=== PATIENT | female | born 1985 | race Caucasian/White ===

== ENCOUNTER → 2016-08-26 | Outpatient (CLI) | payer OTHER ==
[~2016-08-26] MED LIST: /PANT40TA PO; /QUET10TA PO; ACET-654 PO; HYDR25T PO; LITH450T PO; RISP1TAB21 PO; UNABLE TO OBTAIN; [UNRECOGNIZED DRUG - CODE] PO
--- NOTE | 2016-08-26 12:30 | REP ---
Chest x-ray: Two views. History: Upper respiratory infection. . Comparison study: June 24, 2016 . Findings: The lungs are well inflated and free of infiltrate. The pleural angles are sharp. The heart size is normal. Pulmonary vasculature is not increased. No significant bony abnormality is seen. There are clips in the right upper quadrant of the abdomen. Impression: Negative chest x-ray. Signed by Derrell Matamoros MD 08/26/2016 12:22 P
== END ==
LOC: M LAB 11:52
PROVIDERS: ATTEND Physician Assistant Medical
DX: J06.9 Acute upper respiratory infection, unspecified (principal)

== ENCOUNTER → 2016-09-04 | Outpatient (CLI) | payer OTHER ==
--- NOTE | 2016-09-05 02:55 | REP ---
Clinical: Acute on chronic back pain . Technique: AP, lateral, bilateral oblique, flexion/extension, and coned-down views. Findings: Alignment and lordosis is maintained. The vertebral bodies including transverse process and spinous processes are intact and normal. There is no evidence for acute fracture / compression injury or subluxation. No evidence for spondylolysis or spondylolisthesis. No significant degenerative change is noted. Impression: Normal lumbosacral spine radiograph series. Signed by Kaden Aguilar MD 09/05/2016 02:47 A
== END ==
LOC: M RAD 15:59
PROVIDERS: ATTEND Physician Assistant Medical
DX: M54.5 Low back pain (principal)

== ENCOUNTER → 2016-09-12 | Outpatient (CLI) | payer OTHER ==
--- NOTE | 2016-09-13 00:47 | REP ---
Clinical: thoracic pain. Technique: AP, lateral, and swimmers views. Findings: Alignment and kyphosis is maintained. Vertebral bodies intact. No acute fracture / compression injury or subluxation. No degenerative changes. Paravertebral soft tissues are normal. Impression: Normal thoracic spine series. Signed by Kaden Aguilar MD 09/13/2016 12:39 A
== END ==
LOC: M RAD 16:38
PROVIDERS: ATTEND Physician Assistant Medical
DX: M54.6 Pain in thoracic spine (principal)

== ENCOUNTER → 2016-10-02 | Outpatient (CLI) | payer OTHER ==
[2016-10-02 11:37] LABS: BASO # 0.1 K/mm3 (0.0-0.2); BASO % 0.9 % (0.0-1.0); EOS # 0.3 K/mm3 (0.0-0.50); EOS % 3.6 % (0.0-3.0); LYMPH # 2.6 K/mm3 (1.5-4.5); MEAN CORPUSCULAR HEMOGLOBIN 31.9 pg (27.0-33.0); MEAN CORPUSCULAR HGB CONC 34.3 g/dl (32.0-36.5); MONO # 0.5 K/mm3 (0.0-0.8); NEUTROPHILS # 4.1 K/mm3 (1.8-7.7); NEUTROPHILS % 54.3 % (36.0-66.0); WHITE BLOOD COUNT 7.5 K/mm3 (4.0-10.0)
--- NOTE | 2016-10-02 12:02 | REP ---
Complete abdominal ultrasound: There is a cholecystectomy. The hepatic parenchyma is homogeneous and unremarkable. There is no intrahepatic or extrahepatic biliary duct dilatation, the common duct measures 5.4 mm diameter. The visualized portion of the pancreatic head is unremarkable. The spleen is normal size and homogeneous measuring 9.9 x 4.9 x 8.9 cm. The kidneys are normal size. The right kidney measures 10.9 x 5.7 x 4.3 cm. Left kidney measures 11.8 of 5.1 x 5.0 cm. There is no hydronephrosis or calculus in either kidney. There is a small echogenic focus laterally in the upper pole left kidney measuring approximate 1 cm diameter, possibly an angiomyolipoma. Confirmation by CT or MRI is recommended. There is no abdominal aortic aneurysm. There is no free intraperitoneal fluid. Impression: Cholecystectomy. 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 Confirmation by CT or MRI is recommended. Otherwise, negative complete abdominal ultrasound. Signed by Cem Clay MD 10/02/2016 11:54 A
[2016-10-02 12:51] LABS: ALBUMIN 3.8 GM/DL (3.2-5.2); ALBUMIN/GLOBULIN RATIO 1.31 (1.00-1.93); ALKALINE PHOSPHATASE 67 U/L (45-117); ALT/SGPT 18 U/L (12-78); ANION GAP 7 MEQ/L (8-16); AST/SGOT 13 U/L (15-37); BILIRUBIN,TOTAL 0.6 MG/DL (0.2-1.0); BLOOD UREA NITROGEN 9 MG/DL (7-18); CALCIUM LEVEL 8.8 MG/DL (8.5-10.1); CARBON DIOXIDE LEVEL 27 MEQ/L (21-32); CHLORIDE LEVEL 109 MEQ/L (98-107); CREATININE FOR GFR 0.62 MG/DL (0.55-1.02); GLOMERULAR FILTRATION RATE > 60.0 (>60); GLUCOSE, FASTING 94 MG/DL (70-105); POTASSIUM SERUM 4.2 MEQ/L (3.5-5.1); SODIUM LEVEL 143 MEQ/L (136-145); TOTAL PROTEIN 6.7 GM/DL (6.4-8.2)
== END ==
LOC: M RAD 10:12
PROVIDERS: ATTEND Physician Assistant Medical
DX: K58.2 Mixed irritable bowel syndrome (principal)

== ENCOUNTER → 2016-10-30 | Outpatient (CLI) | payer OTHER ==
--- NOTE | 2016-10-30 13:17 | REP ---
Right foot four views: There is no fracture or dislocation. Mineralization and joint spaces are normal. There are no calcifications or foreign bodies. Impression: Negative right foot . Signed by Cem Clay MD 10/30/2016 01:09 P
== END ==
LOC: M RAD 11:25
PROVIDERS: ATTEND Physician Assistant Medical
DX: M79.671 Pain in right foot (principal)

== ENCOUNTER → 2016-12-17 | Outpatient (CLI) | payer OTHER ==
[2016-12-17 09:07] LABS: BASO # 0.1 K/mm3 (0.0-0.2); BASO % 0.6 % (0.0-1.0); EOS # 0.4 K/mm3 (0.0-0.50); EOS % 5.2 % (0.0-3.0); LYMPH # 2.7 K/mm3 (1.5-4.5); LYMPH % 30.9 % (24.0-44.0); MEAN CORPUSCULAR HEMOGLOBIN 32.9 pg (27.0-33.0); MEAN CORPUSCULAR HGB CONC 33.6 g/dl (32.0-36.5); MEAN CORPUSCULAR VOLUME 97.7 fl (80.0-96.0); MONO # 0.5 K/mm3 (0.0-0.8); MONO % 6.3 % (0.0-5.0); NEUTROPHILS # 4.7 K/mm3 (1.8-7.7); RED CELL DISTRIBUTION WIDTH 12.6 % (11.5-14.5); WHITE BLOOD COUNT 8.6 K/mm3 (4.0-10.0)
[2016-12-17 09:16] LABS: CONTROL LINE MONO INT CTR LINE PRESENT
[2016-12-17 09:32] LABS: ALBUMIN 3.8 GM/DL (3.2-5.2); ALBUMIN/GLOBULIN RATIO 1.15 (1.00-1.93); ALKALINE PHOSPHATASE 62 U/L (45-117); ALT/SGPT 37 U/L (12-78); ANION GAP 6 MEQ/L (8-16); AST/SGOT 16 U/L (15-37); BILIRUBIN,TOTAL 0.6 MG/DL (0.2-1.0); BLOOD UREA NITROGEN 10 MG/DL (7-18); CALCIUM LEVEL 8.3 MG/DL (8.5-10.1); CARBON DIOXIDE LEVEL 27 MEQ/L (21-32); CHLORIDE LEVEL 106 MEQ/L (98-107); CREATININE FOR GFR 0.65 MG/DL (0.55-1.02); FERRITIN 13 NG/ML (8-252); GLOMERULAR FILTRATION RATE > 60.0 (>60); GLUCOSE, FASTING 91 MG/DL (70-105); MAGNESIUM LEVEL 1.8 MG/DL (1.8-2.4); PHOSPHORUS LEVEL 2.9 MG/DL (2.5-4.9); POTASSIUM SERUM 4.3 MEQ/L (3.5-5.1); SODIUM LEVEL 139 MEQ/L (136-145); TOTAL PROTEIN 7.1 GM/DL (6.4-8.2)
[2016-12-17 10:15] LABS: FOLATE > 24.0 NG/ML (>5.4); VITAMIN B12 LEVEL 451 PG/ML (247-911)
[2016-12-19 00:06] LABS: Lyme Disease IgG/IgM Antibodie <0.91 ISR (0.00-0.90); Lyme Disease IgM Ab Quantitati <0.80 index (0.00-0.79)
== END ==
LOC: M LAB 08:18
PROVIDERS: ATTEND Physician Assistant Medical
DX: R53.83 Other fatigue (principal)

== ENCOUNTER → 2017-01-02 | Outpatient (CLI) | payer OTHER ==
[2017-01-02 10:13] LABS: BASO # 0.1 K/mm3 (0.0-0.2); BASO % 0.7 % (0.0-1.0); EOS # 0.4 K/mm3 (0.0-0.50); EOS % 4.1 % (0.0-3.0); LYMPH # 2.7 K/mm3 (1.5-4.5); LYMPH % 28.8 % (24.0-44.0); MEAN CORPUSCULAR HEMOGLOBIN 33.4 pg (27.0-33.0); MEAN CORPUSCULAR HGB CONC 35.1 g/dl (32.0-36.5); MEAN CORPUSCULAR VOLUME 95.2 fl (80.0-96.0); MONO # 0.6 K/mm3 (0.0-0.8); NEUTROPHILS # 5.2 K/mm3 (1.8-7.7); NEUTROPHILS % 57.8 % (36.0-66.0); RED CELL DISTRIBUTION WIDTH 12.4 % (11.5-14.5)
[2017-01-02 10:42] LABS: ALBUMIN 3.9 GM/DL (3.2-5.2); ALBUMIN/GLOBULIN RATIO 1.26 (1.00-1.93); ALKALINE PHOSPHATASE 59 U/L (45-117); ALT/SGPT 25 U/L (12-78); ANION GAP 6 MEQ/L (8-16); AST/SGOT 15 U/L (15-37); BILIRUBIN,TOTAL 0.6 MG/DL (0.2-1.0); BLOOD UREA NITROGEN 11 MG/DL (7-18); CALCIUM LEVEL 8.7 MG/DL (8.5-10.1); CARBON DIOXIDE LEVEL 28 MEQ/L (21-32); CHLORIDE LEVEL 105 MEQ/L (98-107); CHOLESTEROL LEVEL 203 MG/DL (<200); CREATININE FOR GFR 0.65 MG/DL (0.55-1.02); GLOMERULAR FILTRATION RATE > 60.0 (>60); GLUCOSE, FASTING 96 MG/DL (70-105); POTASSIUM SERUM 4.6 MEQ/L (3.5-5.1); SODIUM LEVEL 139 MEQ/L (136-145); TRIGLYCERIDES LEVEL 132 MG/DL (<150)
[2017-01-02 11:03] LABS: VITAMIN B12 LEVEL 350 PG/ML
[2017-01-02 11:35] LABS: FOLATE > 24.0 NG/ML
== END ==
LOC: M LAB 09:27
PROVIDERS: ATTEND Physician Assistant Medical
DX: E78.2 Mixed hyperlipidemia (principal)

== ENCOUNTER 2017-01-30 07:46 | Emergency (ER) | payer OTHER ==
[~2017-01-30] VITALS: Ht 152.4 cm; Wt 65.9 kg
[2017-01-30] MEDS ORDERED: VITA50003 (08:05)
[2017-01-30] MEDS ORDERED: KETOROLAC 60 MG/2 ML VIAL (J1885) IM ONE (08:30)
[2017-01-30] MEDS ORDERED: SKEL-29 PO (09:29)
[2017-01-30] MEDS ORDERED: NAPR500T PO (09:29)
[2017-01-30 09:48] VITALS: BP 114/58
[2017-01-30] MEDS ORDERED: CYCLOBENZAPRINE 5MG TABLET PO ONE (10:15)
[2017-01-30] MEDS ORDERED: [UNRECOGNIZED DRUG - CODE] PO (11:08)
[2017-01-30] MEDS ORDERED: ASCO25TA PO (11:08)
[2017-01-30] MEDS ORDERED: VITATAB11 PO (11:08)
[2017-01-30] MEDS ORDERED: PROBCAP4 PO (11:08)
[2017-01-30] MEDS ORDERED: CYCL10TA PO (12:19)
[2017-01-30] MEDS ORDERED: PRED20TA PO (12:19)
== END 2017-01-30 10:18 | disposition home or self-care (01) ==
LOC: M ED 08:35
DX: G89.29 Other chronic pain (principal); Z90.49 Acquired absence of other specified parts of digestive tract; Z79.899 Other long term (current) drug therapy; Z88.1 Allergy status to other antibiotic agents; Z88.8 Allergy status to other drugs, medicaments and biological substances; Z91.010 Allergy to peanuts; Z91.018 Allergy to other foods; Z91.040 Latex allergy status

== ENCOUNTER 2017-01-30 10:46 | Emergency (ER) | payer OTHER ==
[~2017-01-30] VITALS: Ht 152.4 cm; Wt 65.7 kg
[~2017-01-30 10:46] MED LIST changes: +NAPR500T PO; +SKEL-29 PO; +VITA50003
[2017-01-30] MEDS ORDERED: PROBCAP4 PO (11:08)
[2017-01-30] MEDS ORDERED: ASCO25TA PO (11:08)
[2017-01-30] MEDS ORDERED: VITATAB11 PO (11:08)
[2017-01-30] MEDS ORDERED: [UNRECOGNIZED DRUG - CODE] PO (11:08)
[2017-01-30] MEDS ORDERED: CYCL10TA PO (12:19)
[2017-01-30] MEDS ORDERED: PRED20TA PO (12:19)
[2017-01-30 12:22] VITALS: BP 114/67
[2017-01-30] MEDS ORDERED: CYCLOBENZAPRINE 10 MG TAB PO ONE (12:30)
== END 2017-01-30 12:27 | disposition home or self-care (01) ==
LOC: M ED 11:31
DX: S39.012A Strain of muscle, fascia and tendon of lower back, initial encounter (principal); X50.0XXA Overexertion from strenuous movement or load, initial encounter; Y92.89 Other specified places as the place of occurrence of the external cause; Y93.E2 Activity, laundry; Y99.8 Other external cause status; F31.9 Bipolar disorder, unspecified; F17.200 Nicotine dependence, unspecified, uncomplicated; Z79.899 Other long term (current) drug therapy; Z79.1 Long term (current) use of non-steroidal anti-inflammatories (NSAID); Z91.018 Allergy to other foods; Z88.0 Allergy status to penicillin; Z88.8 Allergy status to other drugs, medicaments and biological substances; Z91.040 Latex allergy status; Z91.010 Allergy to peanuts

== ENCOUNTER → 2017-04-01 | Outpatient (CLI) | payer OTHER ==
[~2017-04-01] MED LIST changes: +ASCO25TA PO; +BENA25TA10 PO; +BREO1INH INH; +CYCL10TA PO; +CYCL5TAB PO; +MELO15TA4 PO; +MENSTAB PO; +MICR1TAB16 PO; +NICO21DI31 TD; +OLIV500C PO; +PRED20TA PO; +PROBCAP4 PO; +SERT-155 PO; +SIME80TA PO; -SKEL-29 PO; +SKEL800T97 PO; +TIZA4CAP3 PO; +VITA1CAP40; +VITA1CAP40 PO; -VITA50003; +VITATAB11 PO; +VITATAB22 PO; +[UNRECOGNIZED DRUG - CODE] PO; +[UNRECOGNIZED DRUG - CODE] PO
[2017-04-01 18:54] LABS: FOLLICLE STIMULATING HORMONE 7.4 mIU/mL; PROGESTERONE 0.5 NG/ML; PROLACTIN 9.9 NG/ML
== END ==
LOC: M SMT 14:34
PROVIDERS: ATTEND Specialist
DX: N93.8 Other specified abnormal uterine and vaginal bleeding (principal)

== ENCOUNTER 2017-04-22 16:51 | Emergency (ER) | payer OTHER ==
[~2017-04-22] VITALS: Ht 152.4 cm; Wt 65.0 kg
[~2017-04-22 16:51] MED LIST changes: -BENA25TA10 PO; -BREO1INH INH; -CYCL5TAB PO; -MELO15TA4 PO; -MENSTAB PO; -MICR1TAB16 PO; -NICO21DI31 TD; -OLIV500C PO; -SERT-155 PO; -SIME80TA PO; -TIZA4CAP3 PO; -VITA1CAP40 PO; -VITATAB22 PO; -[UNRECOGNIZED DRUG - CODE] PO
[2017-04-22 19:19] LABS: BASO # 0.1 K/mm3 (0.0-0.2); BASO % 0.5 % (0.0-1.0); EOS # 0.3 K/mm3 (0.0-0.50); EOS % 2.3 % (0.0-3.0); LARGE UNSTAINED CELL # 0.2 K/mm3 (0.0-0.4); LARGE UNSTAINED CELL % 1.1 % (0.0-4.0); LYMPH # 1.9 K/mm3 (1.5-4.5); MEAN CORPUSCULAR HEMOGLOBIN 34.6 pg (27.0-33.0); MEAN CORPUSCULAR VOLUME 94.2 fl (80.0-96.0); MONO # 0.6 K/mm3 (0.0-0.8); MONO % 4.7 % (0.0-5.0); NEUTROPHILS # 10.3 K/mm3 (1.8-7.7); NEUTROPHILS % 77.3 % (36.0-66.0); PLATELET COUNT, AUTOMATED 208 k/mm3 (150-450); RED CELL DISTRIBUTION WIDTH 11.5 % (11.5-14.5); WHITE BLOOD COUNT 13.3 K/mm3 (4.0-10.0)
[2017-04-22 19:26] LABS: INR 0.91
[2017-04-22 19:28] LABS: ADD MORPHOLOGY? NO; MEAN CORPUSCULAR HGB CONC 35.9 g/dl (32.0-36.5)
[2017-04-22 19:46] LABS: ALBUMIN 3.9 GM/DL (3.2-5.2); ALBUMIN/GLOBULIN RATIO 1.22 (1.00-1.93); ALKALINE PHOSPHATASE 64 U/L (45-117); ALT/SGPT 52 U/L (12-78); ANION GAP 8 MEQ/L (8-16); AST/SGOT 76 U/L (15-37); BILIRUBIN,DIRECT 0.2 MG/DL (0.0-0.2); BILIRUBIN,TOTAL 0.5 MG/DL (0.2-1.0); BLOOD UREA NITROGEN 8 MG/DL (7-18); CALCIUM LEVEL 8.9 MG/DL (8.5-10.1); CARBON DIOXIDE LEVEL 27 MEQ/L (21-32); CHLORIDE LEVEL 106 MEQ/L (98-107); CREATININE FOR GFR 0.59 MG/DL (0.55-1.02); GLOMERULAR FILTRATION RATE > 60.0 (>60); GLUCOSE, FASTING 102 MG/DL (70-105); POTASSIUM SERUM 4.4 MEQ/L (3.5-5.1); SODIUM LEVEL 141 MEQ/L (136-145); TOTAL PROTEIN 7.1 GM/DL (6.4-8.2)
[2017-04-22 20:19] LABS: CONTROL LINE HCG INT CTR LINE PRESENT
[2017-04-22 20:45] VITALS: BP 122/77
--- NOTE | 2017-04-23 08:07 | REP ---
Clinical: Chest pain . Comparison: 08/26/2016 . Technique: PA and lateral. Findings: The mediastinum and cardiac silhouette are normal. The lung quach are clear and without acute consolidation, effusion, or pneumothorax. The skeletal structures are intact and normal. Impression: 1. No acute cardiopulmonary process. Signed by Kaden Aguilar MD 04/23/2017 07:58 A
--- NOTE | 2017-04-23 21:34 | ECGEPIP ---
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
--- NOTE | 2017-04-23 21:36 | ECGEPIP ---
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
[2017-06-22] MEDS ORDERED: VITA1CAP40 PO (19:46)
[2017-06-26] MEDS ORDERED: OLAN10TA2 PO (14:53)
[2017-06-26] MEDS ORDERED: OXCA300T PO (14:53)
== END 2017-04-22 23:24 | disposition home or self-care (01) ==
LOC: M ED 16:51 → EDBD 16:51 → M ED 23:24
DX: R55 Syncope and collapse (principal); F31.9 Bipolar disorder, unspecified; M54.9 Dorsalgia, unspecified; F17.200 Nicotine dependence, unspecified, uncomplicated; Z91.010 Allergy to peanuts; Z91.018 Allergy to other foods; Z88.0 Allergy status to penicillin; Z88.8 Allergy status to other drugs, medicaments and biological substances; Z91.040 Latex allergy status; Z91.038 Other insect allergy status; Z79.899 Other long term (current) drug therapy

== ENCOUNTER → 2017-05-13 | Outpatient (CLI) | payer OTHER ==
[~2017-05-13] MED LIST changes: +BENA25TA10 PO; +BREO1INH INH; +CYCL5TAB PO; +DRIS50002 PO; +MELO15TA4 PO; +MENSTAB PO; +MICR1TAB16 PO; +NICO21DI31 TD; +OLAN10TA2 PO; +OLIV500C PO; +OXCA300T PO; +SERT-155 PO; +SIME80TA PO; +TIZA4CAP3 PO; +VITA1CAP40 PO; +VITATAB22 PO; +[UNRECOGNIZED DRUG - CODE] PO
[2017-05-13 12:38] LABS: CONTROL LINE HCG INT CTR LINE PRESENT
[2017-05-13 13:01] LABS: HCG, SERUM QUANTITATIVE < 1.0 MIU/ML
== END ==
LOC: M LAB 11:32
PROVIDERS: ATTEND Physician Assistant Medical
DX: R11.0 Nausea (principal)

== ENCOUNTER 2017-06-02 10:29 | Emergency (ER) | payer OTHER ==
[~2017-06-02] VITALS: Ht 152.4 cm; Wt 63.6 kg
[~2017-06-02 10:29] MED LIST changes: -BENA25TA10 PO; -BREO1INH INH; -CYCL5TAB PO; -DRIS50002 PO; -MELO15TA4 PO; -MENSTAB PO; -MICR1TAB16 PO; -NICO21DI31 TD; -OLAN10TA2 PO; -OLIV500C PO; -OXCA300T PO; -SERT-155 PO; -SIME80TA PO; -TIZA4CAP3 PO; -VITA1CAP40 PO; -VITATAB22 PO; -[UNRECOGNIZED DRUG - CODE] PO
[2017-06-02] MEDS ORDERED: MICR1TAB16 PO (10:49)
[2017-06-02] MEDS ORDERED: BREO1INH INH (10:49)
[2017-06-02] MEDS ORDERED: OLIV500C PO (10:49)
[2017-06-02 11:58] LABS: MEAN CORPUSCULAR HEMOGLOBIN 32.7 pg (27.0-33.0); MEAN CORPUSCULAR HGB CONC 35.9 g/dl (32.0-36.5); RED CELL DISTRIBUTION WIDTH 11.4 % (11.5-14.5); WHITE BLOOD COUNT 8.6 10^3/uL (4.0-10.0)
[2017-06-02 12:16] LABS: CONTROL LINE HCG INT CTR LINE PRESENT
[2017-06-02 12:32] LABS: METHADONE URINE NEGATIVE (NEGATIVE)
[2017-06-02 12:36] LABS: ALBUMIN 3.9 GM/DL (3.2-5.2); ALBUMIN/GLOBULIN RATIO 1.08 (1.00-1.93); ALKALINE PHOSPHATASE 55 U/L (45-117); ALT/SGPT 21 U/L (12-78); ANION GAP 9 MEQ/L (8-16); AST/SGOT 13 U/L (15-37); BILIRUBIN,DIRECT 0.2 MG/DL (0.0-0.2); BILIRUBIN,TOTAL 0.7 MG/DL (0.2-1.0); BLOOD UREA NITROGEN 9 MG/DL (7-18); CALCIUM LEVEL 8.9 MG/DL (8.5-10.1); CARBON DIOXIDE LEVEL 24 MEQ/L (21-32); CHLORIDE LEVEL 109 MEQ/L (98-107); CREATININE FOR GFR 0.69 MG/DL (0.55-1.02); GLOMERULAR FILTRATION RATE > 60.0 (>60); GLUCOSE, FASTING 90 MG/DL (70-105); POTASSIUM SERUM 3.9 MEQ/L (3.5-5.1); SODIUM LEVEL 142 MEQ/L (136-145); TOTAL PROTEIN 7.5 GM/DL (6.4-8.2)
[2017-06-02] MEDS ORDERED: [UNRECOGNIZED DRUG - CODE] PO (12:49)
[2017-06-02] MEDS ORDERED: VITATAB22 PO (12:49)
[2017-06-02] MEDS ORDERED: MELO15TA4 PO (12:54)
[2017-06-02] MEDS ORDERED: SIME80TA PO (12:54)
[2017-06-02] MEDS ORDERED: CYCL10TA PO (12:54)
[2017-06-02] MEDS ORDERED: SERT-155 PO (12:54)
[2017-06-02] MEDS ORDERED: MENSTAB PO (12:54)
[2017-06-02] MEDS ORDERED: TIZA4CAP3 PO (12:54)
[2017-06-02] MEDS ORDERED: CYCL5TAB PO (12:54)
[2017-06-02] MEDS ORDERED: BENA25TA10 PO (12:54)
[2017-06-02] MEDS ORDERED: NICO21DI31 TD (12:56)
[2017-06-02 15:21] VITALS: BP 125/85
[2017-06-22] MEDS ORDERED: VITA1CAP40 PO (19:46)
[2017-06-26] MEDS ORDERED: OXCA300T PO (14:53)
[2017-06-26] MEDS ORDERED: OLAN10TA2 PO (14:53)
== END 2017-06-02 15:22 | disposition home or self-care (01) ==
LOC: M ED 10:29
DX: F41.0 Panic disorder [episodic paroxysmal anxiety] (principal); F60.3 Borderline personality disorder; Z87.891 Personal history of nicotine dependence

== ENCOUNTER → 2017-06-03 | Outpatient (CLI) | payer OTHER ==
[~2017-06-03] MED LIST changes: +BENA25TA10 PO; +BREO1INH INH; +CYCL5TAB PO; +DRIS50002 PO; +MELO15TA4 PO; +MENSTAB PO; +MICR1TAB16 PO; +NICO21DI31 TD; +OLAN10TA2 PO; +OLIV500C PO; +OXCA300T PO; +SERT-155 PO; +SIME80TA PO; +TIZA4CAP3 PO; +VITA1CAP40 PO; +VITATAB22 PO; +[UNRECOGNIZED DRUG - CODE] PO
== END ==
LOC: M LAB 10:36
PROVIDERS: ATTEND Registered Nurse Psychiatric/Mental Health
DX: F25.0 Schizoaffective disorder, bipolar type (principal)

== ENCOUNTER 2017-06-06 16:22 | Emergency (ER) | payer OTHER ==
[~2017-06-06] VITALS: Ht 152.4 cm; Wt 63.6 kg
[2017-06-06] MEDS: HALOPERIDOL 5 MG/ML VIAL (J1630) IM ONE ×2 (15:45→17:45)
[2017-06-06] MEDS: LORazepam 2 MG/ML VIAL (J2060) IM ONE ×2 (15:45→17:45)
[~2017-06-06 16:22] MED LIST changes: -DRIS50002 PO; -OLAN10TA2 PO; -OXCA300T PO; -VITA1CAP40 PO
[2017-06-06] MEDS ORDERED: HALOPERIDOL 5 MG/ML VIAL (J1630) As Ordered ONE (17:33)
[2017-06-06] MEDS ORDERED: LORazepam 2 MG/ML VIAL (J2060) As Ordered ONE (17:33)
[2017-06-06 18:49] LABS: MEAN CORPUSCULAR HEMOGLOBIN 32.3 pg (27.0-33.0); MEAN CORPUSCULAR HGB CONC 35.4 g/dl (32.0-36.5); MEAN CORPUSCULAR VOLUME 91.2 fl (80.0-96.0); PLATELET COUNT, AUTOMATED 226 10^3/uL (150-450); RED CELL DISTRIBUTION WIDTH 11.7 % (11.5-14.5); WHITE BLOOD COUNT 8.6 10^3/uL (4.0-10.0)
[2017-06-06 19:07] LABS: CONTROL LINE HCG INT CTR LINE PRESENT
[2017-06-06 19:22] LABS: ALBUMIN/GLOBULIN RATIO 1.33 (1.00-1.93); ALKALINE PHOSPHATASE 53 U/L (45-117); ALT/SGPT 31 U/L (12-78); ANION GAP 10 MEQ/L (8-16); AST/SGOT 31 U/L (15-37); BILIRUBIN,DIRECT 0.3 MG/DL (0.0-0.2); BILIRUBIN,TOTAL 0.8 MG/DL (0.2-1.0); BLOOD UREA NITROGEN 10 MG/DL (7-18); CALCIUM LEVEL 9.1 MG/DL (8.5-10.1); CARBON DIOXIDE LEVEL 25 MEQ/L (21-32); CHLORIDE LEVEL 109 MEQ/L (98-107); CREATININE FOR GFR 0.78 MG/DL (0.55-1.02); GLOMERULAR FILTRATION RATE > 60.0 (>60); GLUCOSE, FASTING 79 MG/DL (70-105); POTASSIUM SERUM 3.5 MEQ/L (3.5-5.1); SODIUM LEVEL 144 MEQ/L (136-145)
[2017-06-07 05:52] LABS: METHADONE URINE NEGATIVE (NEGATIVE)
--- NOTE | 2017-06-07 06:01 | ECGEPIP ---
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
[2017-06-07] MEDS ORDERED: LORazepam 2 MG TAB PO ONE (16:30)
[2017-06-07] MEDS ORDERED: LORazepam 1 MG TAB PO ONE (22:45)
[2017-06-07 23:20] VITALS: BP 154/79
[2017-06-22] MEDS ORDERED: VITA1CAP40 PO (19:46)
[2017-06-26] MEDS ORDERED: OXCA300T PO (14:53)
[2017-06-26] MEDS ORDERED: OLAN10TA2 PO (14:53)
== END 2017-06-07 23:31 ==
LOC: M ED 16:22
DX: F23 Brief psychotic disorder (principal); F31.9 Bipolar disorder, unspecified; K21.9 Gastro-esophageal reflux disease without esophagitis; K58.9 Irritable bowel syndrome, unspecified; E07.9 Disorder of thyroid, unspecified; F17.210 Nicotine dependence, cigarettes, uncomplicated; Z91.048 Other nonmedicinal substance allergy status; Z91.018 Allergy to other foods; Z88.8 Allergy status to other drugs, medicaments and biological substances; Z91.040 Latex allergy status; Z91.010 Allergy to peanuts
CPT/HCPCS: 80048; 80076; 80307; 80320; 80329; 84443; 84703; 85027; 93000; 96372; 99285; J1630; J2060

== ENCOUNTER 2017-06-30 11:42 | Inpatient (IN) | payer OTHER ==
[~2017-06-30] VITALS: Ht 165.1 cm; Wt 68.0 kg
[~2017-06-30 11:42] MED LIST changes: +OLAN10TA2 PO; +OXCA300T PO; +VITA1CAP40 PO
[2017-06-30 12:10] LABS: MEAN CORPUSCULAR HEMOGLOBIN 31.2 pg (27.0-33.0); MEAN CORPUSCULAR HGB CONC 34.6 g/dl (32.0-36.5); MEAN CORPUSCULAR VOLUME 90.2 fl (80.0-96.0); PLATELET COUNT, AUTOMATED 254 10^3/uL (150-450); RED CELL DISTRIBUTION WIDTH 11.9 % (11.5-14.5); WHITE BLOOD COUNT 8.9 10^3/uL (4.0-10.0)
[2017-06-30] MEDS ORDERED: LORazepam 1 MG TAB PO STA (12:10)
[2017-06-30] MEDS ORDERED: HALOPERIDOL 5 MG TAB PO STA (12:10)
[2017-06-30] MEDS ORDERED: NICOTINE 21MG/24HR 1 EA TRANSDERMAL TD ONE (12:15)
[2017-06-30 12:29] LABS: CONTROL LINE HCG INT CTR LINE PRESENT
[2017-06-30 12:48] LABS: ALBUMIN 4.1 GM/DL (3.2-5.2); ALBUMIN/GLOBULIN RATIO 1.37 (1.00-1.93); ALKALINE PHOSPHATASE 55 U/L (45-117); ALT/SGPT 29 U/L (12-78); ANION GAP 7 MEQ/L (8-16); AST/SGOT 17 U/L (7-37); BILIRUBIN,DIRECT 0.1 MG/DL (0.0-0.2); BILIRUBIN,TOTAL 0.5 MG/DL (0.2-1.0); BLOOD UREA NITROGEN 7 MG/DL (7-18); CALCIUM LEVEL 8.7 MG/DL (8.5-10.1); CARBON DIOXIDE LEVEL 25 MEQ/L (21-32); CHLORIDE LEVEL 109 MEQ/L (98-107); CREATININE FOR GFR 0.52 MG/DL (0.55-1.02); GLOMERULAR FILTRATION RATE > 60.0 (>60); GLUCOSE, FASTING 108 MG/DL (70-105); POTASSIUM SERUM 3.5 MEQ/L (3.5-5.1); SODIUM LEVEL 141 MEQ/L (136-145); TOTAL PROTEIN 7.1 GM/DL (6.4-8.2)
[2017-06-30] MEDS ORDERED: ACETAMINOPHEN TAB 650MG DOSE (2X325MG) PO ONE (14:00)
[2017-06-30] MEDS ORDERED: traZODone 50 MG TAB PO PRN (17:30)
[2017-06-30] MEDS ORDERED: MOM 30ML SUSPENSION UDC PO PRN (17:30)
[2017-06-30] MEDS ORDERED: MAALOX 30 ML SUSP *UDC PO PRN (17:30)
[2017-06-30] MEDS ORDERED: DRIS50002 PO (17:38)
[2017-06-30] MEDS ORDERED: OLAN10TA2 PO (17:38)
[2017-06-30] MEDS ORDERED: OXCA300T PO (17:38)
[2017-06-30 19:45] LABS: METHADONE URINE NEGATIVE (NEGATIVE)
[2017-06-30] MEDS ORDERED: OXcarbazepine 300 MG TAB PO SCH (21:00)
[2017-06-30] MEDS ORDERED: OLANZapine 10 MG TAB PO ONE (21:15)
[2017-06-30] MEDS: QUEtiapine FUMARATE 100 MG TAB PO SCH (21:22)
[2017-06-30] MEDS: risperiDONE 1 MG TAB PO SCH (21:22)
[2017-07-01] MEDS ORDERED: diphenhydrAMINE INJ 50MG/ML VIAL (J1200) IM STA (04:18)
[2017-07-01] MEDS ORDERED: HALOPERIDOL 5 MG/ML VIAL (J1630) IM STA (04:18)
[2017-07-01] MEDS ORDERED: LORazepam 2 MG/ML VIAL (J2060) IM STA (04:18)
[2017-07-01 04:51] VITALS: BP 103/70
[2017-07-01 05:02] VITALS: BP 114/57
--- NOTE | 2017-07-01 05:11 | MHIR ---
General Date: Jul 01, 2017 Time Initiated: 04:30 Restraint Documentation Order/Evaluation Face to Face: NO Physician Assessment: Nursing staff reported via telephone she was getting agitated and agitating other patients. She tried to pinch one staff member, tried to kick another one and tried to hit other three staff members. Another patient who is very aggressive and violent was about to hurt Fabby. Date/Time of order initiated: July 01/2017 at 4:30 a.m. Reason for restraint: Patient poses imminent danger of harming others or self harm by: being psychotic and agitated. De-escalation interventions attempted before use of restraints: Staff reported trying to talk to her to calm her down but she went into her bathroom, kept yelling and tried to lock herself into her bathroom. Had to be taken out to administer her the injection on her bed, in her room. Type of restraint used: Both because after she was given the chemical restraint , she kept pacing in the hallways, yelling. She was placed in 4 point restraints both when she fell asleep ( secondary to the sedation cused by the medications), the restraints were removed one by one. Length of time ordered in restraint: One hour. When to discontinue restraint: At 5:30 A.M., once the patient has shown a response to Haldol, Ativan and Benadryl. Post evaluation of restraint due in 20 minutes. BROOKLYN CUNNINGHAM MD Jul 01, 2017 05:11
[2017-07-01 05:16] VITALS: BP 109/53
--- NOTE | 2017-07-01 05:18 | MHPR ---
General Date: Jul 01, 2017 Time: 04:57 Post-Restraint Evaluation The outcome of the restraint: patient was evaluated while on three point restraints. One of the restraints in her legas had already been removed because she had just fallen asleep. Patient was stable during during thee restraining, her vital signs were within the normal range. Effectiveness of the restraint (mechanical and/or chemical): Mechanical and Chemical restraints were effective. Any evidence that the patient was affected emotionally? : She was asleep when this conventional mortgage underwriter came to evaluate her. Any need for counseling/assistance? : Not at this time. Changes to treatment plan: Will adjust her medications, patient was just admitted on June 30 afternoon. Recommendations for future incidents: Will try to avoid this type of incident by keeping her on the right medications, provide support, encourage her to attend groups. Patient was admitted 06/30/17, just hours before this incident. BROOKLYN CUNNINGHAM MD Jul 01, 2017 05:18
--- NOTE | 2017-07-01 10:13 | HPEPDOC ---
[facility] Medical History & Physical Date of Admission Jun 30, 2017 History and Physical PCP: Jorge Rodriguez [employer]PER[employer] ATTENDING: Dr. Ulises Garcia HPI: 32 yoF admitted to [facility] for unspecified psychotic disorder, being medically examined today. The patient received, chemical and physical restraints 04:40 hours 07/01/17 related to agitation and aggressive behavior. The patient currently is unable to participate with history or physical exam. History is taken from chart. The pt was most recently admitted to [facility] -06/27/17 for schizoaffective disorder. No voiced concerns as per staff. PMHx: Bipolar disorder Schizoaffective disorder Anxiety Depression Chronic low back pain IBS CT head 02/26. NAD. PSHX: Tympanostomy tubes [place] teeth extraction Cholecystectomy Tubal ligation D&C 2. SOCHX: Resides in: [facility] Marital Status: Single Kids: 4 children, 3 children living in [place], 1 adopted. Employment: Unemployed Tobacco use: One to 2 per day ETOH: Patient states none for the past 1 year Illicit Drugs: Marijuana IV Drug Use: Denies Tattoos done unprofessionally: 3 FAMHX: Mother: Alive, fibromyalgia, diabetes Father: Alive, heart disease Siblings: One brother, one sister Alive, well Children: Alive, well Unexpected deaths due to medical reasons: None. ROS: Patient is not able to provide history at this time. PE: Patient is not able to participate with exam at this time. EK06/06/17 SINUS RHYTHM WITH SINUS ARRHYTHMIA POOR R WAVE PROGRESSION SIMILAR TO 04/22/17 A&P: 32 yoF admitted to [facility] for unspecified psychotic disorder 1. Psych. Plan per Psychiatry. EKG on file. Request UA/urine culture. 2. Nicotine dependence. Patch available. 3. Tattoos done unprofessionally. HIV and hepatitis screening unremarkable . 4. Follow up with PCP on discharge. 5. Chronic back pain. Continue Tylenol 650 mg every 6 hours as needed. 6. Staff member Regis assisted in attempting exam. Vital Signs Vital Signs Date Time Temp Pulse Resp B/P (MAP) Pulse Ox O2 Delivery O2 Flow Rate FiO2 07/01/17 05:16 98.3 75 16 109/53 06/30/17 20:08 96 Room Air Laboratory Data Labs 24H Laboratory Tests 2 06/30/17 11:47: Nucleated Red Blood Cells % (auto) 0.0, Anion Gap 7L, Glomerular Filtration Rate > 60.0, Calcium Level 8.7, Aspartate Amino Transf (AST/SGOT) 17, Alanine Aminotransferase (ALT/SGPT) 29, Alkaline Phosphatase 55, Total Bilirubin 0.5, Direct Bilirubin 0.1, Total Protein 7.1, Albumin 4.1, Albumin/Globulin Ratio 1.37, Thyroid Stimulating Hormone (TSH) 0.463, Human Chorionic Gonadotropin, Qual NEGATIVE, Salicylates Level < 1.7L, Acetaminophen Level < 2.0L, Ethyl Alcohol Level < 0.003 06/30/17 19:12: Urine Amphetamines Screen NEGATIVE, Urine Benzodiazepines Screen NEGATIVE, Urine Opiates Screen NEGATIVE, Urine Methadone Screen NEGATIVE, Urine Barbiturates Screen NEGATIVE, Urine Phencyclidine Screen NEGATIVE, Urine Cocaine Metabolite Screen NEGATIVE, Urine Cannabinoids Screen POSITIVEH CBC/BMP Laboratory Tests 06/30/17 11:47 Red Blood Count 4.29, Mean Corpuscular Volume 90.2, Mean Corpuscular Hemoglobin 31.2, Mean Corpuscular Hemoglobin Concent 34.6, Red Cell Distribution Width 11.9 Home Medications Scheduled Olanzapine (Olanzapine) 10 Mg Tab, 10 MG PO QHS Oxcarbazepine (Oxcarbazepine) 300 Mg Tab, 300 MG PO BID Vitamin D (Drisdol) 50,000 Unit Cap, 50,000 UNIT PO QWEEK Allergies Coded Allergies: Amoxicillin (Verified Allergy, Unknown, 04/22/17) Banana (Verified Allergy, Unknown, 04/22/17) Cockroach (Verified Allergy, Unknown, 04/22/17) Kiwi (Verified Allergy, Unknown, 04/22/17) Latex (Verified Allergy, Unknown, 04/22/17) Peanut (Verified Allergy, Unknown, 04/22/17) Valproic Acid (Verified Allergy, Unknown, 04/22/17) Naproxen (Verified Adverse Reaction, Intermediate, internal bleeding, ) Roz Yuan Jul 01, 2017 10:13
[2017-07-01] MEDS: LITHIUM CARBONATE 300 MG CAP PO SCH ×2 (10:49→21:36)
[2017-07-01] MEDS: risperiDONE 1 MG TAB PO SCH ×3 (10:49→21:36)
--- NOTE | 2017-07-01 10:53 | MHHPE ---
DATE OF ADMISSION: 06/30/2017 LEGAL STATUS AT ADMISSION: 9.39 legal status. CHIEF COMPLAINT: "I was trying to heal a woman". HISTORY OF PRESENT ILLNESS: 32-year-old female with history of bipolar disorder admitted to our unit on a 9.39 legal status. According to the record, the patient came to the emergency department brought in by the police after her ex- called them. It is reported that she was acutely psychotic and she made threats to harm herself and others. This patient is described as floridly psychotic making bizarre statements pacing the room, un-making her bed and putting sheets in the pillow case, removing her clothing with pressured speech, rapid nonsensical. The patient was discharged from our unit on 06/26/2017. At that time, she was admitted for a manic episode. She took some medications for a few days. She improved somewhat but then she started to refuse her medications. At the moment of discharge, at that time, she had no suicidal or homicidal ideation. She was showing pressured speech and some degree of hyperactivity and symptoms compatible with hypomanic episode but she was not meeting the criteria for involuntary hospitalization. A meeting was held with her best friend and she was discharged home with the agreement to followup medications and recommendations. The urine drug screen at this time on admission is positive for marijuana. She was agitated in the process of admission and had to be medicated with Haldol 10 mg, Ativan 2 mg and Benadryl 50 mg. This morning, the patient is still sedated and unable to cooperate with a formal history taking a mental status examination. Most of the information is gathered from her chart. PAST MEDICAL HISTORY: The patient has been diagnosed with gastroesophageal reflux disease (GERD), thyroid storm, irritable bowel syndrome and chronic back pain. PSYCHIATRIC HISTORY: The patient has been diagnosed with bipolar disorder. She was on Depakote in the past but it had to be stopped because "it made my heart fall". The patient was recently discharged from our unit and previously from [facility] because she was not compliant with her medications. FAMILY HISTORY: Apparently, she had a maternal grandmother with bipolar disorder and there is a history of drug and alcohol addiction as well as depression in her family. SUBSTANCE ABUSE HISTORY: The patient denies any problems with drugs or alcohol. However, she was positive for cannabis this time. She admitted to smoking cannabis many years ago. SOCIAL HISTORY: The patient was born in [facility]. She reports a normal childhood, but says she was bullied and picked on by everyone at school. She dropped at in the ninth grade, but then she got her GED. She has three children. She stated that she just finished a relationship with her boyfriend. Was depending on her best friend Lorna for housing. Apparently, Lorna has been a source of support for the patient. PSYCHIATRIC REVIEW OF SYSTEMS: The patient was unable to provide information. PHYSICAL EXAMINATION: As per physician clinical services assistant. LABS AT ADMISSION: Her CBC was within normal limits. CMP is unremarkable. TSH within normal limits. test is negative. Urine drug screen is positive for cannabis. Blood alcohol level is negative. MENTAL STATUS EXAMINATION: The patient is unable to cooperate with formal mental status examination because he is sedated. The patient is dressed in [facility]. Speech is slurred because of the medication. Poor eye contact. Unable to test attention, concentration and memory. The patient appears to have auditory visual hallucinations and paranoid delusions. The patient is having temple delusions. Judgment and insight are very poor. DIAGNOSIS: AXIS I: Bipolar disorder, manic episode, marijuana abuse. AXIS II: Deferred. AXIS III: Gastroesophageal reflux disease, history of thyroid storms, irritable bowel syndrome and chronic back pain. INITIAL TREATMENT PLAN: The patient was admitted on a 9.39 legal status. Complete history could not be obtained. With her permission family will be contacted and data base will be expanded. Her medication regimen will be reviewed and changed accordingly. She will be provided with protected environment. She will be treated with individual, group and milieu therapy. She will also received supportive psychoeducation. Discharge planning will commence immediately. The length of stay will between 5 and 7 days. Outpatient followup will be strongly recommended. Treatment plan will focus initially on laura, risk for suicide, risk for harm to others, poor impulse control, altered thoughts.
[2017-07-01 18:13] VITALS: BP 118/65
[2017-07-01] MEDS: QUEtiapine FUMARATE 100 MG TAB PO SCH (21:36)
[2017-07-02] MEDS: ACETAMINOPHEN TAB 650MG DOSE (2X325MG) PO PRN ×2 (09:19→20:04)
[2017-07-02] MEDS: LITHIUM CARBONATE 300 MG CAP PO SCH (09:19)
[2017-07-02] MEDS: risperiDONE 1 MG TAB PO SCH ×3 (09:19→20:01)
[2017-07-02 09:20] VITALS: BP 118/65
[2017-07-02] MEDS: NICOTINE 21MG/24HR 1 EA TRANSDERMAL TD SCH (10:10)
--- NOTE | 2017-07-02 15:48 | MHIPN ---
DATE: 07/02/2017 HISTORY: 32-year-old female with a history of bipolar disorder, admitted for stabilization of a manic episode. The patient was described as acutely psychotic making bizarre statements, pressured speech, rapid, nonsensical. MEDICATIONS: - lithium 300 mg by mouth twice a day - Risperdal 1 mg by mouth three times a day - Seroquel 100 mg by mouth at night SUBJECTIVE: "I am feeling great." OBJECTIVE: The patient continues manic, delusional, labile, hyperactive with flight of ideas, very low insight and judgment. The patient is tolerating well the medications. MENTAL STATUS EXAMINATION: The patient is dressed in [facility]. The patient is partially cooperative, although she continues displaying manic behavior. Speech is pressured. Mood is above manic. Affect is expansive. Continues with paranoid delusions. Somewhat grandiose. No auditory or visual hallucinations. Is able to contract for safety while in the hospital. Insight and judgment is poor. ASSESSMENT: 1. Bipolar disorder, manic episode. PLAN: 1. Increase [place] to 600 mg by mouth twice a day. 2. Continue Risperdal 1 mg by mouth three times a day. 3. Continue Seroquel 100 mg at night. 4. Continue close observation. 5. Continue medication management, individual and group therapy.
[2017-07-02 18:00] VITALS: BP 129/80
[2017-07-02] MEDS: LITHIUM CARBONATE 600 MG CAP PO SCH (20:01)
[2017-07-02] MEDS: QUEtiapine FUMARATE 100 MG TAB PO SCH (22:08)
[2017-07-03] MEDS ORDERED: HALOPERIDOL 5 MG TAB PO ONE
[2017-07-03] MEDS ORDERED: LORazepam 1 MG TAB PO ONE
[2017-07-03 06:31] VITALS: BP 116/77
[2017-07-03] MEDS: ACETAMINOPHEN TAB 650MG DOSE (2X325MG) PO PRN ×3 (06:55→20:34)
[2017-07-03] MEDS: LITHIUM CARBONATE 600 MG CAP PO SCH ×2 (09:37→20:49)
[2017-07-03] MEDS: PALIPERIDONE 3 MG ER TAB (INVEGA) PO SCH ×2 (09:37→20:49)
[2017-07-03] MEDS: NICOTINE 21MG/24HR 1 EA TRANSDERMAL TD SCH (09:38)
--- NOTE | 2017-07-03 15:00 | MHIPN ---
DATE OF SERVICE: 07/03/2017 HISTORY: 32-year-old female with history of bipolar disorder admitted for stabilization of a manic episode. Patient was described as acutely psychotic making bizarre statements, pressured speech, rapid and nonsensical. MEDICATIONS: - lithium 600 mg by mouth twice a day - Risperdal 1 mg by mouth three times a day - Seroquel 100 mg by mouth nightly SUBJECTIVE: "I need to go home." OBJECTIVE: Patient continues manic, delusional, labile, hyperactive. Last night had to be medicated because she was dancing and yelling in the hallway. Patient could not be redirected. Patient continues with flight of ideas, low insight and judgment. MENTAL STATUS EXAMINATION: Patient is dressed in [facility]. Patient is partially cooperative, is slightly drowsy this morning because of the medication. Speech is pressured. Mood is manic. Affect is expansive. Patient continues with paranoid delusions. Religiously preoccupied and grandiose. Judgment and insight are very poor. ASSESSMENT: Bipolar disorder, manic episode. PLAN: 1. Continue [place] 600 mg by mouth twice a day. 2. Discontinue Risperdal. 3. Start [place]ve[place] 3 mg by mouth twice a day. 4. Continue Seroquel 100 mg by mouth nightly. 5. Continue close observation. 6. Continue medication management, individual and group therapy. MTDD
[2017-07-03] MEDS ORDERED: BENZTROPINE 2 MG TAB PO ONE (17:00)
[2017-07-03 18:00] VITALS: BP 135/75
[2017-07-03] MEDS ORDERED: diphenhydrAMINE 50 MG CAP PO ONE ×2 (20:30)
[2017-07-03] MEDS: QUEtiapine FUMARATE 100 MG TAB PO SCH (20:49)
[2017-07-04 06:35] VITALS: BP 130/77
[2017-07-04] MEDS: NICOTINE 21MG/24HR 1 EA TRANSDERMAL TD SCH (08:02)
[2017-07-04] MEDS: LITHIUM CARBONATE 600 MG CAP PO SCH ×2 (08:03→21:01)
[2017-07-04] MEDS: PALIPERIDONE 3 MG ER TAB (INVEGA) PO SCH ×2 (08:03→21:01)
--- NOTE | 2017-07-04 15:41 | IPN ---
DATE: 07/04/2017 HISTORY: 32-year-old female with history of bipolar disorder admitted for stabilization of a manic episode. Patient was described as acutely psychotic, making bizarre statements, pressured speech, and being nonsensical. MEDICATIONS: - lithium 600 mg by mouth twice a day - [place] 3 mg by mouth twice a day - Seroquel 100 mg by mouth nightly SUBJECTIVE: "I'm ready to go home." OBJECTIVE: Patient continues manic, delusional, labile, and hyperactive. Patient is compliant with the medication, has very little insight, is requesting to go home. Judgment is poor. MENTAL STATUS EXAMINATION: Patient dressed in [facility]. Patient is partially cooperative. Patient continues manic, delusional, grandiose, religiously preoccupied, poor attention and concentration. Judgment and insight are very good. ASSESSMENT: 1. Bipolar disorder, manic episode. PLAN: 1. Continue [place] 600 mg by mouth twice a day. 2. Will get a [place] level on 07/06/2017, and also complete metabolic panel (CMP). 3. Invega 3 mg by mouth twice a day. 4. Continue Seroquel 100 mg by mouth nightly. 5. Continue medication management, individual and group therapy.
[2017-07-04 18:19] VITALS: BP 112/73
[2017-07-04] MEDS: ACETAMINOPHEN TAB 650MG DOSE (2X325MG) PO PRN (18:35)
[2017-07-04] MEDS: QUEtiapine FUMARATE 100 MG TAB PO SCH (21:00)
[2017-07-05] MEDS: ACETAMINOPHEN TAB 650MG DOSE (2X325MG) PO PRN ×2 (01:40→16:27)
[2017-07-05] MEDS: QUEtiapine FUMARATE 100 MG TAB PO SCH ×2 (02:51→21:00)
[2017-07-05 06:40] VITALS: BP 128/76
[2017-07-05] MEDS: NICOTINE 21MG/24HR 1 EA TRANSDERMAL TD SCH (08:30)
[2017-07-05] MEDS: PALIPERIDONE 3 MG ER TAB (INVEGA) PO SCH ×2 (08:30→20:09)
[2017-07-05] MEDS: LITHIUM CARBONATE 600 MG CAP PO SCH ×2 (08:30→20:10)
[2017-07-05] MEDS: diphenhydrAMINE 50 MG CAP PO PRN ×2 (13:11→21:19)
[2017-07-05 18:00] VITALS: BP 136/67
[2017-07-06] MEDS: diphenhydrAMINE 50 MG CAP PO PRN ×2 (04:19→20:54)
[2017-07-06] MEDS: ACETAMINOPHEN TAB 650MG DOSE (2X325MG) PO PRN ×2 (05:08→15:32)
[2017-07-06 06:48] VITALS: BP 120/78
[2017-07-06 07:46] LABS: ALBUMIN 3.5 GM/DL (3.2-5.2); ALBUMIN/GLOBULIN RATIO 1.13 (1.00-1.93); ALKALINE PHOSPHATASE 51 U/L (45-117); ALT/SGPT 47 U/L (12-78); ANION GAP 7 MEQ/L (8-16); AST/SGOT 23 U/L (7-37); BILIRUBIN,TOTAL 0.4 MG/DL (0.2-1.0); BLOOD UREA NITROGEN 9 MG/DL (7-18); CALCIUM LEVEL 8.8 MG/DL (8.5-10.1); CARBON DIOXIDE LEVEL 28 MEQ/L (21-32); CHLORIDE LEVEL 103 MEQ/L (98-107); CREATININE FOR GFR 0.64 MG/DL (0.55-1.02); GLOMERULAR FILTRATION RATE > 60.0 (>60); GLUCOSE, FASTING 96 MG/DL (70-105); POTASSIUM SERUM 3.9 MEQ/L (3.5-5.1); SODIUM LEVEL 138 MEQ/L (136-145); TOTAL PROTEIN 6.6 GM/DL (6.4-8.2)
[2017-07-06 07:48] LABS: LITHIUM LEVEL 0.65 MEQ/L (0.60-1.20)
[2017-07-06] MEDS: LITHIUM CARBONATE 600 MG CAP PO SCH ×3 (08:32→21:00)
[2017-07-06] MEDS: PALIPERIDONE 3 MG ER TAB (INVEGA) PO SCH ×3 (08:32→21:00)
[2017-07-06] MEDS: NICOTINE 21MG/24HR 1 EA TRANSDERMAL TD SCH (08:32)
[2017-07-06 18:00] VITALS: BP 140/84
[2017-07-06] MEDS: QUEtiapine FUMARATE 100 MG TAB PO SCH (20:52)
[2017-07-07] MEDS: diphenhydrAMINE 50 MG CAP PO PRN ×2 (03:00→14:55)
[2017-07-07 06:42] VITALS: BP 136/76
[2017-07-07] MEDS: LITHIUM CARBONATE 600 MG CAP PO SCH (08:59)
[2017-07-07] MEDS: NICOTINE 21MG/24HR 1 EA TRANSDERMAL TD SCH (08:59)
[2017-07-07] MEDS: PALIPERIDONE 3 MG ER TAB (INVEGA) PO SCH ×2 (08:59→21:00)
[2017-07-07] MEDS: QUEtiapine FUMARATE 50 MG TAB PO SCH (15:02)
[2017-07-07] MEDS: ACETAMINOPHEN TAB 650MG DOSE (2X325MG) PO PRN (15:03)
[2017-07-07 15:15] VITALS: BP_SYST 149; BP_SYST 159; BP_DIAS 115; BP_DIAS 90
[2017-07-07] MEDS ORDERED: LORazepam 2 MG/ML VIAL (J2060) As Ordered ONE (15:20)
[2017-07-07] MEDS ORDERED: LORazepam 2 MG/ML VIAL (J2060) IM STA (15:25)
--- NOTE | 2017-07-07 15:49 | IPNPDOC ---
Date Seen The patient was seen on 07/07/17. Progress Note HPI: 32 yoF admitted to [facility] for unspecified psychotic disorder. The patient currently is unable to participate with history or physical exam. History is taken from chart. The pt was most recently admitted to [facility] -06/27/17 for schizoaffective disorder. A RAT was called at approximately 15:20 today after Pt became presyncopal/ syncopal on the unit. She fell to the ground in the hallway, denies LOC, head injury. She is responding to questions. No specific injury. According to attending physician he had met her her about 20 min prior and she had no lightheadedness, dizziness at that time. PMHx: Bipolar disorder Schizoaffective disorder Anxiety Depression Chronic low back pain IBS CT head 02/26. NAD. PSHX: Tympanostomy tubes [place] teeth extraction Cholecystectomy Tubal ligation D&C 2. PE: GEN: 32yoF, appears stated age. Well-nourished, well developed. Alert. She is teary at times, stating she is [place]. HEENT: Normocephalic, atraumatic. Sclera are nonicteric. Conjunctiva without injection. Nose midline. Moist mucous membranes. CHEST: Regular rate and rhythm, +S1, +S2 LUNGS: Clear to auscultation bilaterally. ABD: Round, soft, non-tender, non-distended. +Bowel sounds throughout. EXT: No lower extremity edema appreciated. SKIN: [place], dry, warm. No rashes. NEURO: No focal deficits appreciated. EK06/06/17 SINUS RHYTHM WITH SINUS ARRHYTHMIA POOR R WAVE PROGRESSION SIMILAR TO 04/22/17 A&P: 32 yoF admitted to [facility] for unspecified psychotic disorder 1. Psych. Plan per Psychiatry. Update EKG. 2. Nicotine dependence. Patch available. 3. Tattoos done unprofessionally. HIV and hepatitis screening unremarkable . 4. Follow up with PCP on discharge. 5. Chronic back pain. Continue Tylenol 650 mg every 6 hours as needed. 6. Presyncopal/Syncopal episode. VS noted to be stable, BP 149/90 Glucose 102. Neuro checks Q4 hrs. Orthostatic VS Q8 Labs now including CBC/CMP/Mag/CIP/Trop/[place] level. EKG x [address] Villareal discussed with Dr Tamayo (attending psychiatrist). Pt will remain on IMHU at this time pending above results or any further changes. VS, I&O, 24H, Fishbone Vital Signs/I&O Vital Signs Date Time Temp Pulse Resp B/P (MAP) Pulse Ox O2 Delivery O2 Flow Rate FiO2 07/07/17 06:42 98.2 99 18 136/76 (96) 07/06/17 06:48 Room Air 07/02/17 09:20 96 Laboratory Data 24H LABS Laboratory Tests 2 07/07/17 15:20: Bedside Glucose (Misc Panel) 102 CBC/BMP Item Value Date Time Urine Color YELLOW 07/01/17 1615 Urine Appearance CLEAR 07/01/17 1615 Urine pH 7.0 UNITS 07/01/17 1615 Urine Specific [place] 1.009 07/01/17 1615 Urine Protein NEGATIVE mg/dL 07/01/17 1615 Urine Glucose (UA) NEGATIVE mg/dL 07/01/17 1615 Urine Ketones NEGATIVE mg/dL 07/01/17 1615 Urine Blood NEGATIVE 07/01/17 1615 Urine Nitrite NEGATIVE 07/01/17 1615 Urine Bilirubin NEGATIVE 07/01/17 1615 Urine Urobilinogen 0.2 mg/dL 07/01/17 1615 Urine Leukocyte Esterase NEGATIVE 07/01/17 1615 Urine WBC (Auto) 0 /HPF 07/01/17 1615 White Blood Count 8.9 10^3/uL 06/30/17 1147 Red Blood Count 4.29 10^6/uL 06/30/17 1147 Hemoglobin 13.4 g/dl 06/30/17 1147 Hematocrit 38.7 % 06/30/17 1147 Mean Corpuscular Volume 90.2 fl 06/30/17 1147 Mean Corpuscular Hemoglobin 31.2 pg 06/30/17 1147 Mean Corpuscular Hemoglobin Concent 34.6 g/dl 06/30/17 1147 Red Cell Distribution Width 11.9 % 06/30/17 1147 Platelet Count 254 10^3/uL 06/30/17 1147 Nucleated Red Blood Cells % (auto) 0.0 % 06/30/17 1147 Sodium Level 138 MEQ/L 07/06/17 0647 Potassium Level 3.9 MEQ/L 07/06/17 0647 Chloride Level 103 MEQ/L 07/06/17 0647 Carbon Dioxide Level 28 MEQ/L 07/06/17 0647 Anion Gap 7 MEQ/L L 07/06/17 0647 Blood Urea Nitrogen 9 MG/DL 07/06/17 0647 Creatinine 0.64 MG/DL 07/06/17 0647 Glomerular Filtration Rate > 60.0 07/06/17 0647 Fasting Glucose 96 MG/DL 07/06/17 0647 Calcium Level 8.8 MG/DL 07/06/17 0647 Total Bilirubin 0.4 MG/DL 07/06/17 0647 Aspartate Amino Transf (AST/SGOT) 23 U/L 07/06/17 0647 Alanine Aminotransferase (ALT/SGPT) 47 U/L 07/06/17 0647 Alkaline Phosphatase 51 U/L 07/06/17 0647 Total Protein 6.6 GM/DL 07/06/17 0647 Albumin 3.5 GM/DL 07/06/17 0647 Albumin/Globulin Ratio 1.13 07/06/17 0647 Microbiology Microbiology 07/01/17 Urine Culture - Final, Complete Roz Yuan Jul 07, 2017 15:49
--- NOTE | 2017-07-07 16:09 | REP ---
Head CT without contrast: History: Presyncopal episode. Comparison study: Comparison CT study February 29, 2012. CT findings: Bone window settings demonstrate an intact bony calvarium. There is no evidence of skull fracture or incidental bony calvarial lesion. The visualized paranasal sinuses appear clear. No intraorbital abnormality is seen. On soft tissue window setting images; the lateral, third, and fourth ventricles are normal in size and position. Agrawal-white differentiation pattern is normal above and below the tentorium. There are is no evidence of intracranial hemorrhage. No mass, edema, infarction, or midline shift is seen. No extra-axial fluid collection is appreciated. Impression: Negative noncontrast head CT. Signed by Derrell Matamoros MD 07/07/2017 04:00 P
[2017-07-07 16:15] VITALS: BP_SYST 112; BP_SYST 113; BP_DIAS 66; BP_DIAS 69; BP_DIAS 73
[2017-07-07 16:53] LABS: BASO % 0.6 % (0.0-1.0); EOS # 0.2 10^3/uL (0.0-0.50); EOS % 2.8 % (0.0-3.0); IMMATURE GRANULOCYTE % 0.1 % (0-0); LYMPH % 27.9 % (24.0-44.0); MEAN CORPUSCULAR HEMOGLOBIN 31.6 pg (27.0-33.0); MEAN CORPUSCULAR HGB CONC 34.4 g/dl (32.0-36.5); MEAN CORPUSCULAR VOLUME 91.9 fl (80.0-96.0); MONO # 0.7 10^3/uL (0.0-0.8); MONO % 10.1 % (0.0-5.0); NEUTROPHILS # 4.2 10^3/uL (1.8-7.7); NEUTROPHILS % 58.5 % (36.0-66.0); PLATELET COUNT, AUTOMATED 218 10^3/uL (150-450); WHITE BLOOD COUNT 7.1 10^3/uL (4.0-10.0)
--- NOTE | 2017-07-07 17:08 | MHIPN ---
DATE: 07/07/2017 HISTORY: A 32-year-old female with a history of bipolar disorder, admitted for stabilization of a manic episode. The patient was described as acutely psychotic , making bizarre statements, pressured speech and being nonsensical. MEDICATIONS: - lithium 600 mg by mouth twice a day - Invega 3 mg by mouth twice a day - Seroquel 100 mg by mouth nightly SUBJECTIVE: "I would like to go home." OBJECTIVE: The patient continues manic with grandiose paranoid delusions, hyperactive with flight of ideas, at times is intrusive. Judgment and insight are poor. MENTAL STATUS EXAMINATION: The patient is dressed in [facility]. The patient is partially cooperative. As above, continues manic, delusional, grandiose, religiously preoccupied with poor attention and concentration, flight of ideas. Judgment and insight are poor. ASSESSMENT: 1. Bipolar disorder, manic episode. PLAN: 1. Increase lithium to 600 mg by mouth every morning and 900 mg by mouth nightly. 2. Increase Seroquel to 50 mg by mouth twice a day and 200 mg by mouth nightly. 3. Continue close observation. 4. Continue medication management, individual and group therapy. [facility]
[2017-07-07 17:21] LABS: ALBUMIN 3.5 GM/DL (3.2-5.2); ALBUMIN/GLOBULIN RATIO 1.21 (1.00-1.93); ALKALINE PHOSPHATASE 47 U/L (45-117); ALT/SGPT 38 U/L (12-78); ANION GAP 6 MEQ/L (8-16); AST/SGOT 14 U/L (7-37); BILIRUBIN,TOTAL 0.5 MG/DL (0.2-1.0); BLOOD UREA NITROGEN 8 MG/DL (7-18); CALCIUM LEVEL 8.5 MG/DL (8.5-10.1); CARBON DIOXIDE LEVEL 27 MEQ/L (21-32); CHLORIDE LEVEL 108 MEQ/L (98-107); CREATININE FOR GFR 0.48 MG/DL (0.55-1.02); GLOMERULAR FILTRATION RATE > 60.0 (>60); GLUCOSE, FASTING 93 MG/DL (70-105); MAGNESIUM LEVEL 2.1 MG/DL (1.8-2.4); PHOSPHORUS LEVEL 4.1 MG/DL (2.5-4.9); POTASSIUM SERUM 3.8 MEQ/L (3.5-5.1); SODIUM LEVEL 141 MEQ/L (136-145); TOTAL PROTEIN 6.4 GM/DL (6.4-8.2)
[2017-07-07 18:00] VITALS: BP 133/89
[2017-07-07 18:10] VITALS: BP 109/68
[2017-07-07] MEDS: LITHIUM CARBONATE 300 MG CAP PO SCH (21:00)
[2017-07-07] MEDS ORDERED: QUEtiapine FUMARATE 200 MG TAB PO SCH (21:00)
--- NOTE | 2017-07-07 21:20 | ECGEPIP ---
Stationary ECG Study [facility] Test Date: 2017-07-07 Pat Name: LUCHO BELL Department: Room: [place] [address] Gender: F Heel Sorter: : 1985 Requested By: Roz Yuan Order Number: [id number] Reading MD: Junior Cordero Measurements Intervals [place] Rate: 71 P: 41 NE: 190 QRS: 16 QRSD: 86 T: 1 QT: 411 QTc: 448 Interpretive Statements Normal sinus rhythm Incomplete right bundle branch block Delayed anterior R wave progression No significant change when compared to prior tracing of 06/06/2017 Electronically Signed On 07-07-2017 21:20:19 EST by Junior Cordero
[2017-07-08 06:51] VITALS: BP 101/61
[2017-07-08] MEDS: PALIPERIDONE 3 MG ER TAB (INVEGA) PO SCH ×2 (08:37→20:44)
[2017-07-08] MEDS: LITHIUM CARBONATE 600 MG CAP PO SCH (08:37)
[2017-07-08] MEDS: QUEtiapine FUMARATE 50 MG TAB PO SCH ×2 (08:37→15:20)
[2017-07-08] MEDS: NICOTINE 21MG/24HR 1 EA TRANSDERMAL TD SCH (08:38)
[2017-07-08] MEDS ORDERED: QUEtiapine FUMARATE 100 MG TAB PO PRN (10:15)
[2017-07-08 11:54] VITALS: BP 135/87
[2017-07-08 12:05] VITALS: BP 119/67
[2017-07-08 12:06] VITALS: BP 116/66
[2017-07-08 12:07] VITALS: BP 117/73
--- NOTE | 2017-07-08 15:54 | IPN ---
DATE: 07/08/2017 HISTORY: A 32-year-old female with a history of bipolar disorder, admitted for stabilization of a manic episode. The patient was described as acutely psychotic, making bizarre statements, pressured speech and being nonsensical. MEDICATIONS: - lithium 600 mg by mouth every morning and 900 mg by mouth at bedtime - Invega 3 mg by mouth twice a day - Seroquel 100 mg by mouth at bedtime SUBJECTIVE: "I am an -[place]." OBJECTIVE: The patient continues manic, grandiose, religiously preoccupied, at times intrusive, insight and judgment are very poor. MENTAL STATUS EXAMINATION: The patient is dressed in [facility]. The patient is partially cooperative, unable to fully participate in mental status. The patient continues manic, delusional, paranoid, hyper-pentecostal with poor attention and concentration, flight of ideas. Judgment and insight are poor. ASSESSMENT: Bipolar disorder, manic episode. PLAN: 1. Continue lithium 600 mg by mouth every morning and 900 mg by mouth at bedtime. 2. Seroquel 100 mg by mouth at bedtime and 100 mg as needed for insomnia. 3. Invega 3 mg by mouth twice a day. 4. Continue medication management, individual and group therapy.
[2017-07-08 18:00] VITALS: BP 136/73
[2017-07-08] MEDS: LITHIUM CARBONATE 300 MG CAP PO SCH (20:45)
[2017-07-08] MEDS ORDERED: QUEtiapine FUMARATE 200 MG TAB PO SCH (21:00)
[2017-07-08] MEDS ORDERED: QUEtiapine FUMARATE 100 MG TAB PO SCH (21:00)
[2017-07-08] MEDS: diphenhydrAMINE 50 MG CAP PO PRN (23:16)
[2017-07-09 06:26] VITALS: BP_SYST 101; BP_SYST 106; BP_SYST 112; BP_DIAS 67; BP_DIAS 71; BP_DIAS 72
[2017-07-09] MEDS: QUEtiapine FUMARATE 50 MG TAB PO SCH (08:58)
[2017-07-09] MEDS: LITHIUM CARBONATE 600 MG CAP PO SCH (08:58)
[2017-07-09] MEDS: NICOTINE 21MG/24HR 1 EA TRANSDERMAL TD SCH (08:58)
[2017-07-09] MEDS: PALIPERIDONE 3 MG ER TAB (INVEGA) PO SCH ×2 (08:58→20:26)
[2017-07-09] MEDS: **PENDING PPD ENTRY XX SCH (09:00)
--- NOTE | 2017-07-09 16:25 | MHIPN ---
DATE: 07/09/2017 HISTORY: A 32-year-old female with a history of bipolar disorder, admitted for stabilization of a manic episode. The patient was described as acutely psychotic, making bizarre statements, pressured speech and being nonsensical. MEDICATIONS: - lithium 600 mg by mouth every morning and 900 mg by mouth at bedtime - Invega 3 mg by mouth twice a day - Seroquel 100 mg by mouth at bedtime SUBJECTIVE: "I don't need medication." OBJECTIVE: The patient continues manic, grandiose, religiously preoccupied, at times intrusive with staff and other patients, insight and judgment are very poor. MENTAL STATUS EXAMINATION: The patient is dressed in [facility]. The patient is manic, hyperactive, talkative with pressured speech, delusional, paranoid, religiously preoccupied. Attention and concentration is poor. She has flight of ideas. Insight and judgment are poor. ASSESSMENT: Bipolar disorder, manic episode. PLAN: 1. Continue lithium 600 mg by mouth every morning and 900 mg by mouth at bedtime. 2. Increase Seroquel to 300 mg by mouth at bedtime and 100 mg by mouth twice a day. 3. Continue Invega 3 mg by mouth twice a day. 4. Continue close observation. 5. Continue medication management, individual and group therapy.
[2017-07-09] MEDS: QUEtiapine FUMARATE 100 MG TAB PO SCH ×2 (16:32→21:00)
[2017-07-09 18:05] VITALS: BP 133/79
[2017-07-09 18:07] VITALS: BP_SYST 132; BP_SYST 133; BP_DIAS 81; BP_DIAS 84
[2017-07-09] MEDS: LITHIUM CARBONATE 300 MG CAP PO SCH (20:26)
[2017-07-09] MEDS: ACETAMINOPHEN TAB 650MG DOSE (2X325MG) PO PRN (20:27)
[2017-07-09] MEDS: diphenhydrAMINE 50 MG CAP PO PRN (21:44)
[2017-07-10] MEDS: QUEtiapine FUMARATE 100 MG TAB PO SCH ×4 (01:15→21:00)
[2017-07-10 06:37] VITALS: BP 148/77
[2017-07-10] MEDS: **PENDING PPD ENTRY XX SCH (09:00)
[2017-07-10] MEDS: LITHIUM CARBONATE 600 MG CAP PO SCH (09:14)
[2017-07-10] MEDS: PALIPERIDONE 3 MG ER TAB (INVEGA) PO SCH ×2 (09:14→21:59)
[2017-07-10] MEDS: NICOTINE 21MG/24HR 1 EA TRANSDERMAL TD SCH (09:15)
[2017-07-10] MEDS: ACETAMINOPHEN TAB 650MG DOSE (2X325MG) PO PRN (09:25)
[2017-07-10] MEDS ORDERED: TUBERCULIN PPD 5 UNITS/0.1 ML ID ONE (10:00)
[2017-07-10] MEDS: diphenhydrAMINE 50 MG CAP PO PRN (12:12)
[2017-07-10] MEDS ORDERED: diphenhydrAMINE 50 MG CAP PO ONE (12:45)
[2017-07-10] MEDS ORDERED: HALOPERIDOL 5 MG TAB PO ONE (12:45)
[2017-07-10] MEDS ORDERED: LORazepam 1 MG TAB PO ONE (12:45)
[2017-07-10] MEDS: LITHIUM CARBONATE 300 MG CAP PO SCH (21:00)
[2017-07-10] MEDS: HALOPERIDOL 5 MG TAB PO SCH (21:00)
[2017-07-11 06:33] VITALS: BP_SYST 114; BP_SYST 117; BP_SYST 119; BP_DIAS 69; BP_DIAS 71; BP_DIAS 73
[2017-07-11] MEDS: ACETAMINOPHEN TAB 650MG DOSE (2X325MG) PO PRN ×3 (07:05→21:53)
[2017-07-11] MEDS: PALIPERIDONE 3 MG ER TAB (INVEGA) PO SCH ×2 (08:17→21:51)
[2017-07-11] MEDS: QUEtiapine FUMARATE 100 MG TAB PO SCH ×3 (08:19→21:00)
[2017-07-11] MEDS: HALOPERIDOL 5 MG TAB PO SCH ×2 (08:19→21:00)
[2017-07-11] MEDS: **PENDING PPD ENTRY XX SCH (08:19)
[2017-07-11] MEDS: LITHIUM CARBONATE 600 MG CAP PO SCH (08:19)
[2017-07-11] MEDS: NICOTINE 21MG/24HR 1 EA TRANSDERMAL TD SCH (08:19)
[2017-07-11] MEDS ORDERED: PPD DOCUMENTATION ENTRY MISC XX SCH (10:00)
--- NOTE | 2017-07-11 12:08 | IPN ---
DATE OF SERVICE: 07/10/2017 HISTORY: 32-year-old female with history of bipolar disorder admitted with full blown manic episode. Patient was psychotic, making bizarre statement, pressured speech and being non-sensical. MEDICATIONS: - [place] 600 mg by mouth daily at bedtime and 100 mg by mouth daily at bedtime - Invega 3 mg by mouth twice daily - Seroquel 100 mg by mouth daily at bedtime SUBJECTIVE: "I need natural medication". OBJECTIVE: Patient continues manic, grandiose, intrusive at times, in need of constant redirection. Religiously preoccupied and paranoid. Insight and judgment is very poor. Patient had to be medicated around noon since she was agitated, yelling and screaming. She accepted oral medication. MENTAL STATUS EXAMINATION: Patient dressed in [facility]. Patient is manic, hyperactive with pressured speech, delusional, paranoid, religiously preoccupied with poor attention and concentration, flight of ideas. Insight and judgment is still very poor. ASSESSMENT: 1. Bipolar disorder, manic episode. PLAN: 1. Continue lithium 600 mg by mouth daily in the morning and 900 mg by mouth daily at bedtime. 2. Continue Seroquel 300 mg by mouth daily at bedtime and 100 mg by mouth daily twice daily. 3. Continue Invega 3 mg by mouth twice daily. 4. Continue close observation. 5. Continue medication management, individual and group therapy.
[2017-07-11 18:00] VITALS: BP 130/78
[2017-07-11] MEDS: LITHIUM CARBONATE 300 MG CAP PO SCH (21:00)
[2017-07-11] MEDS: diphenhydrAMINE 50 MG CAP PO PRN (21:50)
--- NOTE | 2017-07-12 02:42 | MHIPN ---
DATE OF SERVICE: 07/11/2017 HISTORY: 32-year-old female with history of bipolar disorder admitted with full blown manic episode. Patient was psychotic, making bizarre statements, being nonsensical with pressured speech, very hyperactive and impulsive. MEDICATIONS: - lithium 600 mg by mouth every morning and 900 mg by mouth nightly - Invega 3 mg by mouth twice a day - Seroquel 100 mg by mouth twice a day plus 300 mg by mouth nightly - Haldol 5 mg by mouth twice a day SUBJECTIVE: "I only need natural remedies." OBJECTIVE: Patient continues manic, grandiose, intrusive, in need of constant redirection. Patient continues to be religiously preoccupied. Patient is more paranoid today and needs to be frequently redirected. Very poor insight and judgment. MENTAL STATUS EXAMINATION: Patient dressed in [facility], manic, hyperactive with pressured speech, delusional, paranoid, religiously preoccupied. Attention and concentration are impaired, has flight of ideas. Insight and judgment is very poor. ASSESSMENT: Bipolar disorder, manic episode. PLAN: 1. Continue lithium 600 mg by mouth every morning and 900 mg by mouth nightly. 2. Continue Seroquel 100 mg by mouth twice a day and 300 mg by mouth nightly. 3. Continue Invega 3 mg by mouth twice a day. 4. Continue Haldol 5 mg by mouth twice a day. 5. Continue medication management, individual and group therapy.
[2017-07-12 06:25] VITALS: BP 107/65
[2017-07-12 07:08] LABS: ALBUMIN 3.6 GM/DL (3.2-5.2); ALBUMIN/GLOBULIN RATIO 1.24 (1.00-1.93); ALKALINE PHOSPHATASE 58 U/L (45-117); ALT/SGPT 85 U/L (12-78); ANION GAP 5 MEQ/L (8-16); AST/SGOT 44 U/L (7-37); BILIRUBIN,TOTAL 0.4 MG/DL (0.2-1.0); BLOOD UREA NITROGEN 11 MG/DL (7-18); CALCIUM LEVEL 8.6 MG/DL (8.5-10.1); CARBON DIOXIDE LEVEL 29 MEQ/L (21-32); CHLORIDE LEVEL 106 MEQ/L (98-107); CREATININE FOR GFR 0.65 MG/DL (0.55-1.02); GLOMERULAR FILTRATION RATE > 60.0 (>60); GLUCOSE, FASTING 109 MG/DL (70-105); POTASSIUM SERUM 4.6 MEQ/L (3.5-5.1); SODIUM LEVEL 140 MEQ/L (136-145); TOTAL PROTEIN 6.5 GM/DL (6.4-8.2)
[2017-07-12 07:12] LABS: LITHIUM LEVEL < 0.20 MEQ/L (0.60-1.20)
[2017-07-12] MEDS: LITHIUM CARBONATE 600 MG CAP PO SCH (08:02)
[2017-07-12] MEDS: ACETAMINOPHEN TAB 650MG DOSE (2X325MG) PO PRN ×3 (08:02→21:43)
[2017-07-12] MEDS: PALIPERIDONE 3 MG ER TAB (INVEGA) PO SCH ×2 (08:02→20:42)
[2017-07-12] MEDS: HALOPERIDOL 5 MG TAB PO SCH ×2 (08:02→20:43)
[2017-07-12] MEDS: QUEtiapine FUMARATE 100 MG TAB PO SCH ×3 (08:02→20:43)
[2017-07-12] MEDS: NICOTINE 21MG/24HR 1 EA TRANSDERMAL TD SCH ×2 (08:02→09:07)
[2017-07-12] MEDS: **PENDING PPD ENTRY XX SCH (08:03)
[2017-07-12 18:00] VITALS: BP 134/85
[2017-07-12] MEDS: diphenhydrAMINE 50 MG CAP PO PRN ×2 (18:33→23:47)
[2017-07-12] MEDS: LITHIUM CARBONATE 300 MG CAP PO SCH (20:43)
[2017-07-13 06:33] VITALS: BP 106/61
[2017-07-13] MEDS: HALOPERIDOL 5 MG TAB PO SCH ×2 (08:02→21:00)
[2017-07-13] MEDS: LITHIUM CARBONATE 600 MG CAP PO SCH (08:02)
[2017-07-13] MEDS: QUEtiapine FUMARATE 100 MG TAB PO SCH ×3 (08:02→21:00)
[2017-07-13] MEDS: PALIPERIDONE 3 MG ER TAB (INVEGA) PO SCH ×2 (08:02→21:00)
[2017-07-13] MEDS: **PENDING PPD ENTRY XX SCH (08:03)
[2017-07-13] MEDS: NICOTINE 21MG/24HR 1 EA TRANSDERMAL TD SCH ×2 (08:03→09:51)
[2017-07-13] MEDS: ACETAMINOPHEN TAB 650MG DOSE (2X325MG) PO PRN (17:02)
[2017-07-13] MEDS ORDERED: diphenhydrAMINE 50 MG CAP PO ONE (17:15)
[2017-07-13] MEDS ORDERED: LORazepam 1 MG TAB PO ONE (17:15)
[2017-07-13] MEDS ORDERED: HALOPERIDOL 5 MG TAB PO ONE (17:15)
[2017-07-13 18:00] VITALS: BP 159/90
[2017-07-13] MEDS ORDERED: LORazepam 2 MG/ML VIAL (J2060) IM STA (18:35)
[2017-07-13] MEDS ORDERED: HALOPERIDOL 5 MG/ML VIAL (J1630) IM STA (18:35)
[2017-07-13 18:45] VITALS: BP 114/73
[2017-07-13 19:00] VITALS: BP 105/63
[2017-07-13 19:15] VITALS: BP 102/57
[2017-07-13 19:30] VITALS: BP 101/58
[2017-07-13] MEDS: LITHIUM CARBONATE 300 MG CAP PO SCH (21:00)
[2017-07-14 06:48] VITALS: BP 118/56
[2017-07-14] MEDS: NICOTINE 21MG/24HR 1 EA TRANSDERMAL TD SCH (08:37)
[2017-07-14] MEDS: PALIPERIDONE 3 MG ER TAB (INVEGA) PO SCH ×2 (08:37→19:57)
[2017-07-14] MEDS: HALOPERIDOL 5 MG TAB PO SCH ×2 (08:38→20:58)
[2017-07-14] MEDS: QUEtiapine FUMARATE 100 MG TAB PO SCH ×3 (08:38→20:58)
[2017-07-14] MEDS: LITHIUM CARBONATE 600 MG CAP PO SCH (08:38)
[2017-07-14] MEDS ORDERED: TUBERCULIN PPD 5 UNITS/0.1 ML ID ONE (10:00)
[2017-07-14] MEDS: ACETAMINOPHEN TAB 650MG DOSE (2X325MG) PO PRN (12:17)
--- NOTE | 2017-07-14 16:51 | MHIPN ---
DATE: 07/14/2017 HISTORY: A 32-year-old female with history of bipolar disorder admitted with a full blown manic episode. The patient was psychotic, making bizarre statements, being nonsensical with pressured speech, very hyperactive and impulsive. MEDICATIONS: - lithium 600 mg by mouth every morning and 900 mg by mouth at bedtime - Invega 3 mg by mouth twice a day - Seroquel 100 mg by mouth twice a day plus 300 mg by mouth at bedtime - Haldol 5 mg by mouth twice a day SUBJECTIVE: "I know my body and I know what I need." OBJECTIVE: The patient continues manic, grandiose, needs frequent redirection. Yesterday, she was angry and agitated and had to be medicated with Haldol and Ativan. MENTAL STATUS EXAMINATION: The patient is dressed in [facility]. The patient is manic, hyperactive with pressured speech, delusional, paranoid, religiously preoccupied. Attention and concentration are impaired. She has flight of ideas. Insight and judgment is very poor. ASSESSMENT: Bipolar disorder, manic episode. PLAN: 1. Continue lithium 600 mg by mouth every morning and 900 mg by mouth at bedtime. 2. Continue Seroquel 100 mg by mouth twice a day plus 300 mg by mouth at bedtime. 3. Continue Invega 3 mg by mouth twice a day. 4. Continue Haldol 5 mg by mouth twice a day. 5. Continue medication management, individual and group therapy.
[2017-07-14 18:05] VITALS: BP 111/65
[2017-07-14] MEDS: LITHIUM CARBONATE 300 MG CAP PO SCH (19:57)
[2017-07-14] MEDS: diphenhydrAMINE 50 MG CAP PO PRN (19:57)
[2017-07-15 06:34] VITALS: BP 102/65
[2017-07-15] MEDS: HALOPERIDOL 5 MG TAB PO SCH ×2 (09:00→21:00)
[2017-07-15] MEDS: LITHIUM CARBONATE 600 MG CAP PO SCH (09:00)
[2017-07-15] MEDS: QUEtiapine FUMARATE 100 MG TAB PO SCH ×3 (09:00→21:00)
[2017-07-15] MEDS: PALIPERIDONE 3 MG ER TAB (INVEGA) PO SCH ×2 (09:00→22:16)
[2017-07-15] MEDS: NICOTINE 21MG/24HR 1 EA TRANSDERMAL TD SCH (09:00)
--- NOTE | 2017-07-15 16:13 | MHIPN ---
DATE OF SERVICE: 07/15/2017 HISTORY: 32-year-old female with history of bipolar disorder admitted with a full blown manic episode. The patient was psychotic, making bizarre statements, being nonsensical with pressured speech, hyperactive and impulsive. MEDICATIONS: - lithium 600 mg by mouth every morning and 900 mg by mouth at bedtime - Invega 3 mg by mouth twice a day - Haldol 5 mg by mouth twice a day - Seroquel 100 mg by mouth twice a day plus 300 mg by mouth at bedtime SUBJECTIVE: "I don't need to take medications." OBJECTIVE: The patient continues manic, grandiose and needs frequent redirection. The patient has been less angry and agitated. She is in a 1:1 observation. MENTAL STATUS: The patient is dressed in [facility]. The patient continues manic and hyperactive with pressured speech, delusional, paranoid and religiously preoccupied. Attention and concentration are impaired. She has flight of ideas. Insight and judgment is very poor. ASSESSMENT: Bipolar disorder, manic episode. PLAN: 1. Continue lithium 600 mg by mouth every morning and 900 mg by mouth at bedtime. 2. Seroquel 100 mg by mouth twice a day plus 300 mg by mouth at bedtime. 3. Invega 3 mg by mouth twice a day. 4. Haldol 5 mg by mouth twice a day. 5. Medication management, individual and group therapy.
[2017-07-15 18:00] VITALS: BP_SYST 108; BP_SYST 116; BP_DIAS 66; BP_DIAS 67
[2017-07-15] MEDS: LITHIUM CARBONATE 300 MG CAP PO SCH (21:00)
[2017-07-16] MEDS: ACETAMINOPHEN TAB 650MG DOSE (2X325MG) PO PRN (00:39)
[2017-07-16] MEDS: diphenhydrAMINE 50 MG CAP PO PRN ×2 (00:39→21:10)
[2017-07-16 06:39] VITALS: BP 115/55
[2017-07-16] MEDS: QUEtiapine FUMARATE 100 MG TAB PO SCH (09:00)
[2017-07-16] MEDS ORDERED: PPD DOCUMENTATION ENTRY MISC XX ONE (09:00)
[2017-07-16] MEDS: NICOTINE 21MG/24HR 1 EA TRANSDERMAL TD SCH (09:00)
[2017-07-16] MEDS: LITHIUM CARBONATE 600 MG CAP PO SCH ×3 (09:00→21:08)
[2017-07-16] MEDS: HALOPERIDOL 5 MG TAB PO SCH ×2 (09:00→21:08)
[2017-07-16] MEDS: PALIPERIDONE 3 MG ER TAB (INVEGA) PO SCH (09:34)
--- NOTE | 2017-07-16 15:11 | MHIPN ---
DATE: 07/16/2017 HISTORY: A 32-year-old female with history of bipolar disorder admitted with a full blown manic episode. The patient was psychotic, making bizarre statements, being nonsensical with pressured speech, hyperactive and impulsive. MEDICATIONS: - lithium 600 mg by mouth every morning and 900 mg by mouth at bedtime - Invega 3 mg by mouth twice a day - Haldol 5 mg by mouth twice a day - Seroquel 100 mg by mouth every morning and 300 mg by mouth at bedtime SUBJECTIVE: "I'm feeling weak today." OBJECTIVE: The patient has been doing better for the last 24 hours. She continues to be paranoid, grandiose, delusional, religiously preoccupied, but her irritability, impulsivity and anger have decreased significantly. One-to-one close observation has been discontinued. MENTAL STATUS: The patient is dressed in [facility]. The patient continues grandiose, delusional, and manic with very low insight into her psychiatric illness. However, she is not angry, irritable, and impulsive. Insight and judgment is very poor. ASSESSMENT: Bipolar disorder, manic episode. PLAN: 1. Continue lithium 600 mg by mouth every morning and 900 mg by mouth at bedtime. 2. Seroquel 100 mg by mouth twice a day plus 300 mg by mouth at bedtime. 3. Invega 3 mg by mouth twice a day. 4. Haldol 5 mg by mouth twice a day. 5. Medication management, individual and group therapy.
[2017-07-16 18:00] VITALS: BP 116/63
[2017-07-17 06:56] VITALS: BP 102/65
[2017-07-17] MEDS: HALOPERIDOL 5 MG TAB PO SCH ×2 (09:43→23:13)
[2017-07-17] MEDS: LITHIUM CARBONATE 600 MG CAP PO SCH ×2 (09:43→23:14)
[2017-07-17] MEDS: NICOTINE 21MG/24HR 1 EA TRANSDERMAL TD SCH (09:47)
--- NOTE | 2017-07-17 16:20 | MHIPN ---
DATE: 07/17/2017 HISTORY: A 32-year-old female with history of bipolar disorder admitted with a full blown manic episode. The patient was psychotic, making bizarre statements, being nonsensical with pressured speech, hyperactive and impulsive. MEDICATIONS: - lithium 600 mg by mouth twice a day - Haldol 5 mg by mouth twice a day - Cogentin 1 mg by mouth twice a day as needed for extrapyramidal side effects (EPS) SUBJECTIVE: "I don't like to take medication." OBJECTIVE: The patient has improved a little since yesterday. The patient decided to take Haldol as prescribed and also lithium. The patient is not as manic. She continues to be delusional, paranoid with very low insight. MENTAL STATUS EXAMINATION: The patient is dressed in [facility]. The patient continues grandiose, delusional and manic, talkative with pressures speech, at times is angry and irritable, but can be redirected today. Insight and judgment is poor. ASSESSMENT: Bipolar disorder, manic episode. PLAN: 1. Continue lithium 600 mg by mouth twice a day. every morning and 900 mg by mouth at bedtime. 2. Continue Haldol 5 mg by mouth twice a day. 3. Continue medication management, individual and group therapy.
[2017-07-17 22:18] VITALS: BP 108/64
[2017-07-18 06:21] VITALS: BP 98/54
[2017-07-18] MEDS: LITHIUM CARBONATE 600 MG CAP PO SCH ×2 (08:33→21:31)
[2017-07-18] MEDS: HALOPERIDOL 5 MG TAB PO SCH (08:33)
[2017-07-18] MEDS: ACETAMINOPHEN TAB 650MG DOSE (2X325MG) PO PRN (08:34)
[2017-07-18] MEDS: NICOTINE 21MG/24HR 1 EA TRANSDERMAL TD SCH (09:00)
--- NOTE | 2017-07-18 15:48 | MHIPN ---
DATE: 07/18/2017 HISTORY: A 32-year-old female with a history of bipolar disorder, admitted with a full-blown manic episode. Patient was psychotic, making bizarre statements, being nonsensical with pressured speech, hyperactive, and impulsive. MEDICATIONS: 1. [place] 600 mg by mouth twice a day. 2. Haldol 5 mg by mouth twice a day. 3. Cogentin 1 mg by mouth twice a day as needed for extrapyramidal symptoms (EPS). SUBJECTIVE: "I feel depressed today." OBJECTIVE: Patient has made a significant change as far as her manic episode. She reports feeling depressed this morning. She was in bed. Says has low energy. Patient appears to be more insightful; however, she says "I hate to feel like this." "[place] don't let me feel anything." MENTAL STATUS EXAMINATION: Patient dressed in [facility]. Patient has poor eye contact. Patient reports feeling depressed. She is no longer manic. She does not have pressured speech. No longer angry or irritable. She can be redirected. Insight and judgment continue to be poor. ASSESSMENT: Bipolar disorder, admitted with a manic episode. PLAN: 1. Continue lithium 600 mg by mouth twice a day. 2. Decrease Haldol to 5 mg by mouth at bedtime. 3. Continue medication management, individual and group therapy. 4. Will get a lithium level and comprehensive metabolic panel (CMP) on July 20.
[2017-07-18] MEDS ORDERED: BENZTROPINE 0.5 MG TAB PO ONE (16:15)
[2017-07-18 18:00] VITALS: BP 108/69
[2017-07-19 07:06] VITALS: BP 116/63
[2017-07-19] MEDS: LITHIUM CARBONATE 600 MG CAP PO SCH ×2 (09:38→20:02)
[2017-07-19] MEDS: NICOTINE 14 MG/24 HR TRANSDERMAL TD SCH (09:38)
[2017-07-19 18:00] VITALS: BP 115/65
[2017-07-19] MEDS: HALOPERIDOL 5 MG TAB PO SCH (20:02)
[2017-07-19] MEDS: diphenhydrAMINE 50 MG CAP PO PRN (21:41)
[2017-07-20 06:42] VITALS: BP 106/57
[2017-07-20 07:27] LABS: ALBUMIN 3.6 GM/DL (3.2-5.2); ALBUMIN/GLOBULIN RATIO 1.13 (1.00-1.93); ALKALINE PHOSPHATASE 63 U/L (45-117); ALT/SGPT 28 U/L (12-78); ANION GAP 5 MEQ/L (8-16); AST/SGOT 8 U/L (7-37); BILIRUBIN,TOTAL 0.5 MG/DL (0.2-1.0); BLOOD UREA NITROGEN 9 MG/DL (7-18); CARBON DIOXIDE LEVEL 31 MEQ/L (21-32); CHLORIDE LEVEL 105 MEQ/L (98-107); GLOMERULAR FILTRATION RATE > 60.0 (>60); GLUCOSE, FASTING 104 MG/DL (70-105); POTASSIUM SERUM 4.4 MEQ/L (3.5-5.1); SODIUM LEVEL 141 MEQ/L (136-145); TOTAL PROTEIN 6.8 GM/DL (6.4-8.2)
[2017-07-20 07:30] LABS: LITHIUM LEVEL 0.69 MEQ/L (0.60-1.20)
[2017-07-20] MEDS: NICOTINE 14 MG/24 HR TRANSDERMAL TD SCH (08:33)
[2017-07-20] MEDS: LITHIUM CARBONATE 600 MG CAP PO SCH ×2 (08:33→20:08)
[2017-07-20 18:00] VITALS: BP 128/68
[2017-07-20] MEDS: HALOPERIDOL 5 MG TAB PO SCH (20:08)
[2017-07-20] MEDS: diphenhydrAMINE 50 MG CAP PO PRN (23:10)
[2017-07-21 07:18] VITALS: BP 109/76
[2017-07-21] MEDS: LITHIUM CARBONATE 600 MG CAP PO SCH (08:53)
[2017-07-21] MEDS: NICOTINE 14 MG/24 HR TRANSDERMAL TD SCH (08:53)
[2017-07-21 18:00] VITALS: BP 113/68
--- NOTE | 2017-07-21 18:51 | MHIPN ---
DATE: 07/21/2017 HISTORY: A 32-year-old female with a history of bipolar disorder, admitted with a full-blown manic episode. The patient was psychotic, making bizarre statements, being nonsensical with pressured speech, hyperactive, and impulsive. MEDICATIONS: - [place] 600 mg by mouth twice a day - Haldol 5 mg by mouth at bedtime - Cogentin 1 mg by mouth twice a day as needed for extrapyramidal symptoms (EPS) SUBJECTIVE: "I don't like to feel like this." OBJECTIVE: The patient continues to complain about the medication has very little insight. However, she is no longer manic. She is now hypomanic. The patient is trying to convince me that she would do better without medication. She continues somewhat grandiose, religiously preoccupied and paranoid. MENTAL STATUS EXAMINATION: The patient is dressed in [facility]. The patient has fair eye contact. The patient continues hypomanic. No pressured speech. The patient is not angry or irritable during the interview. She is more redirected. Insight and judgment continue to be poor. ASSESSMENT: Bipolar disorder, admitted with a manic episode. PLAN: 1. Increase lithium to 600 mg by mouth every morning and 900 mg by mouth at bedtime. Her lithium level is 0.64. 2. Continue Haldol 5 mg by mouth at bedtime. 3. Continue medication management, individual and group therapy.
[2017-07-21] MEDS: LITHIUM CARBONATE 300 MG CAP PO SCH (20:58)
[2017-07-21] MEDS: HALOPERIDOL 5 MG TAB PO SCH (20:58)
[2017-07-21] MEDS: diphenhydrAMINE 50 MG CAP PO PRN (22:12)
[2017-07-22 07:00] VITALS: BP 102/65
[2017-07-22] MEDS: BENZTROPINE 1 MG TAB PO PRN (08:31)
[2017-07-22] MEDS: LITHIUM CARBONATE 300 MG CAP PO SCH ×2 (08:32→20:17)
[2017-07-22] MEDS: NICOTINE 14 MG/24 HR TRANSDERMAL TD SCH (08:32)
--- NOTE | 2017-07-22 16:43 | MHIPN ---
DATE OF SERVICE: 07/22/2017 HISTORY: 4-eczda-ise female with history of bipolar disorder, admitted with a full-blown manic episode. Patient was psychotic, making bizarre statements, was nonsensical with pressured speech, hyperactive and impulsive. MEDICATIONS: - [place] 600 mg by mouth twice a day - Haldol 5 mg by mouth nightly - Cogentin 1 mg by mouth twice a day as needed for extrapyramidal symptoms (EPS) SUBJECTIVE: "I had to take medication because my jaw was locked." OBJECTIVE: Patient is improving. She is no longer manic but is hypomanic. Continues to have low insight into her psychiatric illness. Patient continues talkative with flight of ideas. She is still somewhat grandiose. MENTAL STATUS EXAMINATION: Patient dressed in [facility]. Patient has fair eye contact. Patient continues hypomanic. Patient's insight and judgment is poor. ASSESSMENT: Bipolar disorder, manic episode. PLAN: 1. Continue lithium 600 mg by mouth every morning and 900 mg by mouth nightly. 2. Discontinue Haldol. 3. Start Invega 6 mg by mouth nightly. 4. Cogentin 1 mg by mouth twice a day schedules time 2 days and continue with as needed
[2017-07-22 18:00] VITALS: BP 112/68
[2017-07-22] MEDS: BENZTROPINE 1 MG TAB PO SCH (20:17)
[2017-07-22] MEDS: PALIPERIDONE 6 MG ER TAB (INVEGA) PO SCH (20:17)
[2017-07-22] MEDS: POLYVINYL ALCOHOL OPHTH SOLN 15 ML(LIQUITEARS) OU PRN (20:20)
[2017-07-22] MEDS: SODIUM CHLORIDE NASAL 0.65% SPRAY BTL (OCEAN) PRN (20:21)
[2017-07-22] MEDS: diphenhydrAMINE 50 MG CAP PO PRN (22:30)
[2017-07-23 06:53] VITALS: BP 91/54
[2017-07-23] MEDS: BENZTROPINE 1 MG TAB PO SCH ×2 (09:02→21:56)
[2017-07-23] MEDS: NICOTINE 14 MG/24 HR TRANSDERMAL TD SCH (09:02)
[2017-07-23] MEDS: ACETAMINOPHEN TAB 650MG DOSE (2X325MG) PO PRN (09:03)
[2017-07-23] MEDS: LITHIUM CARBONATE 300 MG CAP PO SCH ×2 (09:03→21:56)
[2017-07-23] MEDS: POLYVINYL ALCOHOL OPHTH SOLN 15 ML(LIQUITEARS) OU PRN (16:12)
--- NOTE | 2017-07-23 16:19 | MHIPN ---
DATE: 07/23/2017 HISTORY: 32-year-old female with a history of bipolar disorder admitted with full blown manic episode. The patient was psychotic, making bizarre statements. Was nonsensical with pressured speech, hyperactive and impulsive. MEDICATIONS: - [place] 600 mg by mouth in the morning and 900 mg by mouth at night - Invega 6 mg by mouth at night - Cogentin 1 mg by mouth twice a day SUBJECTIVE: "I am feeling better." OBJECTIVE: The patient continues improving. She is no longer manic. The patient does not have pressured speech. The patient is more insightful. Denies side effects from the medication other than EPS from the Haldol, but that has been discontinued. MENTAL STATUS EXAMINATION: The patient is dressed in [facility]. The patient is cooperative, has fair eye contact. The patient is talkative but no longer manic. The patient denies auditory or visual hallucinations. No evidence of paranoid delusions today. Insight and judgment is limited. ASSESSMENT: 1. Bipolar disorder, manic episode. PLAN: 1. Continue [place] 600 mg by mouth in the morning and 900 mg by mouth at night. 2. Invega 6 mg by mouth at night. 3. Cogentin 1 mg by mouth twice a day.
[2017-07-23 18:00] VITALS: BP 120/75
[2017-07-23] MEDS: PALIPERIDONE 6 MG ER TAB (INVEGA) PO SCH (21:56)
[2017-07-23] MEDS: diphenhydrAMINE 50 MG CAP PO PRN (22:34)
[2017-07-24 07:29] VITALS: BP 98/60
[2017-07-24] MEDS: NICOTINE 14 MG/24 HR TRANSDERMAL TD SCH (09:11)
[2017-07-24] MEDS: LITHIUM CARBONATE 300 MG CAP PO SCH ×2 (09:12→21:28)
[2017-07-24] MEDS: BENZTROPINE 1 MG TAB PO SCH (09:12)
[2017-07-24] MEDS: POLYVINYL ALCOHOL OPHTH SOLN 15 ML(LIQUITEARS) OU PRN (09:13)
--- NOTE | 2017-07-24 15:59 | MHIPN ---
DATE: 07/24/2017 HISTORY: A 32-year-old female with a history of bipolar disorder, admitted with a full-blown manic episode. Patient was psychotic, making bizarre statements. Was nonsensical with pressured speech, hyperactive, and impulsive. MEDICATIONS: - lithium 600 mg by mouth every morning and 900 mg by mouth at bedtime - Invega 6 mg by mouth at bedtime - Cogentin 1 mg by mouth twice a day SUBJECTIVE: "I'm feeling better." OBJECTIVE: Patient is improving. She is no longer manic. Is more insightful. She no longer has pressured speech and is compliant with the medication. No longer paranoid or delusional. MENTAL STATUS EXAMINATION: Patient dressed in [facility]. Patient is cooperative. Has fair eye contact. Speech is normal in rate, volume, and articulation. Patient denies auditory or visual hallucinations. No delusions. Insight and judgment are improving. ASSESSMENT: Bipolar disorder, manic episode. PLAN: 1. Continue lithium 600 mg by mouth every morning and 900 mg by mouth at bedtime. 2. Decrease Invega to 3 mg by mouth at bedtime. 3. Continue Cogentin 1 mg by mouth twice a day.
[2017-07-24 18:00] VITALS: BP 118/56
[2017-07-24] MEDS ORDERED: PALIPERIDONE 3 MG ER TAB (INVEGA) PO SCH (21:00)
[2017-07-24] MEDS: diphenhydrAMINE 50 MG CAP PO PRN (22:33)
[2017-07-25] MEDS: BENZTROPINE 1 MG TAB PO PRN (06:33)
[2017-07-25 06:37] VITALS: BP 106/68
[2017-07-25] MEDS: NICOTINE 14 MG/24 HR TRANSDERMAL TD SCH (08:04)
[2017-07-25] MEDS: LITHIUM CARBONATE 300 MG CAP PO SCH ×2 (08:04→20:27)
--- NOTE | 2017-07-25 17:35 | MHIPN ---
DATE: 07/25/2017 HISTORY: A 32-year-old female with a history of bipolar disorder, admitted with a full-blown manic episode. Patient was psychotic, making bizarre statements. Was nonsensical with pressured speech, hyperactivity, and impulsivity. MEDICATIONS: - lithium 600 mg by mouth every morning and 900 mg by mouth at bedtime - Invega 6 mg by mouth at bedtime - Cogentin 1 mg by mouth twice a day SUBJECTIVE: "I'm feeling a lot better." OBJECTIVE: Patient has improved during the last few days. Patient is no longer manic/hypomanic. Has some pressured speech. Patient appears to be more insightful. Is compliant with medications. Denies side effects other than extrapyramidal symptoms (EPS) in the jaw that has been treated with Cogentin. At that time, patient was on Haldol and now is on Invega 6 mg at bedtime that patient has tolerated significantly better. MENTAL STATUS EXAMINATION: Patient dressed in [facility]. Patient is cooperative during exam. Has fair eye contact. Speech is somewhat fast but no longer pressured. Patient is denying auditory or visual hallucinations. Patient is no longer paranoid. Insight and judgment are improving. ASSESSMENT: Bipolar disorder, manic episode. PLAN: 1. Continue lithium 600 mg by mouth every morning and 900 mg by mouth at bedtime. 2. Invega 6 mg by mouth at bedtime. 3. Cogentin 1 mg by mouth twice a day. 4. The plan was to transfer the patient to [facility], but she has improved significantly, and we may not have to transfer her. Patient says that she can live with her father and is willing to continue treatment and continue taking her medications.
[2017-07-25 18:00] VITALS: BP 110/61
[2017-07-25] MEDS: PALIPERIDONE 3 MG ER TAB (INVEGA) PO SCH (20:26)
[2017-07-25] MEDS: SODIUM CHLORIDE NASAL 0.65% SPRAY BTL (OCEAN) PRN (20:27)
[2017-07-25] MEDS: POLYVINYL ALCOHOL OPHTH SOLN 15 ML(LIQUITEARS) OU PRN (20:27)
[2017-07-26] MEDS: diphenhydrAMINE 50 MG CAP PO PRN (00:21)
[2017-07-26 06:38] VITALS: BP 104/64
[2017-07-26] MEDS: NICOTINE 14 MG/24 HR TRANSDERMAL TD SCH (08:56)
[2017-07-26] MEDS: LITHIUM CARBONATE 300 MG CAP PO SCH ×2 (08:57→21:02)
[2017-07-26 11:26] VITALS: BP 117/69
[2017-07-26] MEDS: ACETAMINOPHEN TAB 650MG DOSE (2X325MG) PO PRN (16:16)
[2017-07-26 18:00] VITALS: BP 122/68
[2017-07-26] MEDS: PALIPERIDONE 3 MG ER TAB (INVEGA) PO SCH (21:02)
[2017-07-26 21:05] VITALS: BP 106/67
[2017-07-27 06:47] VITALS: BP 84/54
[2017-07-27] MEDS: NICOTINE 14 MG/24 HR TRANSDERMAL TD SCH (08:01)
[2017-07-27] MEDS: LITHIUM CARBONATE 300 MG CAP PO SCH ×2 (08:02→20:59)
[2017-07-27 12:00] VITALS: BP 109/67
[2017-07-27] MEDS: ACETAMINOPHEN TAB 650MG DOSE (2X325MG) PO PRN (14:53)
[2017-07-27 18:00] VITALS: BP 117/64
[2017-07-27] MEDS: PALIPERIDONE 3 MG ER TAB (INVEGA) PO SCH (20:58)
[2017-07-27] MEDS: diphenhydrAMINE 50 MG CAP PO PRN (21:00)
[2017-07-28 06:00] VITALS: BP 101/54
[2017-07-28] MEDS: SODIUM CHLORIDE NASAL 0.65% SPRAY BTL (OCEAN) PRN (09:41)
[2017-07-28] MEDS: LITHIUM CARBONATE 300 MG CAP PO SCH ×2 (09:42→20:18)
[2017-07-28] MEDS: NICOTINE 14 MG/24 HR TRANSDERMAL TD SCH (09:43)
[2017-07-28] MEDS: ACETAMINOPHEN TAB 650MG DOSE (2X325MG) PO PRN (09:44)
[2017-07-28 14:00] VITALS: BP 114/65
--- NOTE | 2017-07-28 15:56 | MHIPN ---
DATE: 06/30/2017 VITAL SIGNS: Temperature 98.7, pulse 60, respirations 16, blood pressure 101/54. CURRENT MEDICATIONS: - paliperidone 6 mg nightly - lithium 600 mg every morning, 900 mg nightly - nicotine patch 14 mg daily - Cogentin 1 mg twice a day as needed - Benadryl 50 mg nightly as needed HISTORY OF PRESENT ILLNESS: This is a 35-year-old white female with a history of bipolar disorder, manic with psychosis. The patient was quite psychotic with signs of thought disorder at time of admission. The patient had been on lithium in the past with some benefit, it was restarted by Dr. Tamayo with clinical improvement. Her psychotic symptoms are also better on the Invega. The patient admits that she still feels manic. Her speech is quite rapid with racing thoughts. She admits to a history of medication noncompliance. She has had significant adverse consequences. She lost total parental rights with her children who now reside with their father. She has had some difficulty with vivid dreams from the nicotine patch. She will take off the patch before bedtime. The patient's lithium level has been therapeutic at 0.69 and 0.82. She had had recent stress due to the breakup of a long-term relationship with her boyfriend. The patient is homeless. Her father is willing to take her back, [place] We discussed the Invega monthly injection, which she is agreeable to. MENTAL STATUS EXAMINATION: The patient is alert, oriented, and cooperative. Speech is still quite rapid with racing thoughts. The patient is sexually preoccupied according to staff. She denies hearing voices. Paranoia is improved. Thought disorder much improved. Insight and judgment are fair. DIAGNOSIS: Bipolar disorder, manic, with psychotic features. PLAN: Invega Sustenna injection 234 mg intramuscular (IM). If she cooperates with the monthly injection, a transfer to the [facility] may no longer be necessary.
[2017-07-28 18:00] VITALS: BP 118/70
[2017-07-28] MEDS: PALIPERIDONE 3 MG ER TAB (INVEGA) PO SCH (20:19)
[2017-07-28] MEDS ORDERED: PALIPERIDONE PALMITATE 234 MG/1.5 ML INJ (INVEGA SUSTENNA)(J2426) IM ONE (21:00)
[2017-07-29 06:58] VITALS: BP 110/57
[2017-07-29] MEDS: NICOTINE 14 MG/24 HR TRANSDERMAL TD SCH (09:22)
[2017-07-29] MEDS: LITHIUM CARBONATE 300 MG CAP PO SCH ×2 (09:23→21:11)
[2017-07-29] MEDS: SODIUM CHLORIDE NASAL 0.65% SPRAY BTL (OCEAN) PRN (10:43)
[2017-07-29 12:35] VITALS: BP 130/67
--- NOTE | 2017-07-29 14:13 | MHIPN ---
DATE: 07/29/2017 VITAL SIGNS: Temperature 98.5, pulse 90, respirations 16, blood pressure 130/67. CURRENT MEDICATIONS: - Invega 6 mg at night - lithium 600 mg in the morning and 900 mg at night - nicotine patch 14 mg daily - Benadryl 50 mg at night as needed HISTORY OF PRESENT ILLNESS: The patient obtained her Invega injection yesterday in her arm and feels a bit sore. Otherwise, it is well tolerated. She did feel a bit tired this morning, perhaps this is due to the combination of oral and injectable Invega. Her oral Invega dose will be lowered. The patient does have stressors in her life but she refuses to talk about it. She does plan on staying with her father upon discharge. The patient was at [facility] earlier this fall. She was on a medication that required food, perhaps Geodon. She often does not eat when she is home by herself and subsequently discontinued the medication and decompensated. MENTAL STATUS EXAMINATION: The patient is alert, awake, and cooperative. Speech is not as rapid, racing thoughts improved. The patient still is sexually preoccupied but impulse control seems improved. She is not hearing voices. Paranoia less prominent. Thought disorder appears to be improving. Insight and judgment is improved. DIAGNOSIS: Schizoaffective disorder, bipolar type, manic with psychotic features. PLAN: Reduce oral Invega.
[2017-07-29 18:18] VITALS: BP 107/55
[2017-07-29] MEDS: ACETAMINOPHEN TAB 650MG DOSE (2X325MG) PO PRN (18:25)
[2017-07-29] MEDS: PALIPERIDONE 3 MG ER TAB (INVEGA) PO SCH (21:10)
[2017-07-30 06:39] VITALS: BP 107/56
[2017-07-30] MEDS: LITHIUM CARBONATE 300 MG CAP PO SCH ×2 (08:03→20:47)
[2017-07-30] MEDS: NICOTINE 14 MG/24 HR TRANSDERMAL TD SCH (08:04)
[2017-07-30 11:35] VITALS: BP 114/74
--- NOTE | 2017-07-30 13:42 | MHIPN ---
DATE: 07/30/2017 VITAL SIGNS: Temperature 97.9, pulse 78, respirations 16, blood pressure 114/74. CURRENT MEDICATIONS: - lithium 600 mg in the morning and 900 mg at night - Invega 3 mg at night - nicotine patch 14 mg daily - Cogentin 1 mg twice a day as needed - Benadryl 50 mg at night as needed HISTORY OF PRESENT ILLNESS: The patient still complains of her arm being a little bit sore after the injection. She is due for another loading dose on Friday morning prior to discharge. Hospital pharmacy staff are consulted who support her receiving the next injection in the gluteal muscle instead of deltoid. The patient ventilates about various situational stressors. The holiday season is hard for her and she has not seen her young children for four months now. Her appetite has been fair. She is sleeping reasonably well, but is still getting the vivid dreams from the nicotine patch. The patient had been on the waiting list for [facility]. Due to her improvement in her mood and condition, she is no longer requiring transfer to [facility]. MENTAL STATUS EXAMINATION: The patient is alert, oriented and cooperative. Speech is more appropriate. Racing thoughts much improved. Speech is no longer tangential. Impulse control is improved. No sexually provocative behavior noted by staff. She denies psychotic symptoms. She is not hearing voices. No paranoia. Insight and judgment do appear much improved. DIAGNOSIS: Schizoaffective disorder, bipolar type, manic. PLAN: Patient due for next loading dose on Friday with discharge afterwards. Patient plans to live temporarily with her father before returning here to the [facility]. Staff to work on discharge planning regarding outpatient mental health services.
[2017-07-30 18:00] VITALS: BP 112/68
[2017-07-30] MEDS: PALIPERIDONE 3 MG ER TAB (INVEGA) PO SCH (20:47)
[2017-07-30 21:00] VITALS: BP 116/70
[2017-07-30] MEDS: diphenhydrAMINE 50 MG CAP PO PRN (21:54)
[2017-07-31 06:55] VITALS: BP 99/56
[2017-07-31] MEDS: LITHIUM CARBONATE 300 MG CAP PO SCH ×2 (08:16→21:08)
[2017-07-31] MEDS: NICOTINE 14 MG/24 HR TRANSDERMAL TD SCH (08:17)
--- NOTE | 2017-07-31 14:06 | MHIPN ---
DATE: 07/31/2017 VITAL SIGNS: Temperature 96.5. Pulse 64. Respirations 16. Blood pressure 99/56. CURRENT MEDICATION: - Invega 3 mg at bedtime - lithium 600 mg every a.m. and 900 mg at bedtime - Benadryl 50 mg at bedtime as needed HISTORY OF PRESENT ILLNESS: The patient ventilates about her stressors in life. She has had multiple losses over the years. She feels that she is coping reasonably well. She feels optimistic about the future. Her appetite is good. She sleeps well at night. 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 She is tolerating the Invega Sustenna well. She will be getting her second loading dose tomorrow and then be discharged. She has no other complaints. MENTAL STATUS EXAMINATION: Mood and affect appear good today. No current signs of depression. Anxiety is minimal. She is not voicing any psychotic symptoms. She is not hearing voices. No signs of paranoia. Grooming and hygiene are quite good. Insight and judgment seem reasonably good. No currently signs of dangerousness. DIAGNOSIS: Schizoaffective disorder, bipolar type, manic. PLAN: Second dose of Invega Sustenna tomorrow in the gluteal muscle. Oral Invega to be discontinued. Patient to be discharged tomorrow.
[2017-07-31 18:00] VITALS: BP 118/75
[2017-07-31] MEDS: diphenhydrAMINE 50 MG CAP PO PRN (21:51)
[2017-08-01 06:50] VITALS: BP 89/47
[2017-08-01] MEDS: LITHIUM CARBONATE 300 MG CAP PO SCH (08:15)
[2017-08-01] MEDS: NICOTINE 14 MG/24 HR TRANSDERMAL TD SCH (08:15)
[2017-08-01] MEDS ORDERED: LITH300C PO ×2 (08:53)
[2017-08-01] MEDS ORDERED: PALIPERIDONE PALMITATE 156 MG/1ML INJ(INVEGA SUSTENNA)(J2426) IM ONE (09:00)
--- NOTE | 2017-08-02 21:36 | MHDS ---
DATE OF ADMISSION: 06/30/2017 DATE OF DISCHARGE: 08/01/2017 VITAL SIGNS: Temperature 96.5, pulse 57, respirations 16, blood pressure 89/47. LABORATORY DATA: CBC and differential within normal limits. Chemistry survey is normal except for low anion gap at 5. [place] level is therapeutic at 0.82 and 0.83 prior to discharge. DISCHARGE DIAGNOSES: Schizoaffective disorder, bipolar type, manic. DISCHARGE MEDICATIONS: - lithium carbonate 600 mg every morning, 900 mg nightly - Invega Sustenna 156 mg intramuscular (IM) at day of discharge on 08/01/2017, next injection of Invega Sustenna at 117 mg IM is due on or about 09/01/2017 CHIEF COMPLAINT: "I was trying to heal a woman." HISTORY OF PRESENT ILLNESS: The patient is a 32-year-old white female admitted by Dr. Tamayo on a 9.39 basis. Family had called the police, reporting that patient was acutely psychotic. She had been making threats to harm herself and others. At time of admission in the emergency room, she was forwardly psychotic, making bizarre statements, pacing the room, removing her clothing with pressured speech that was nonsensical. Patient had just been discharged from [facility] ([facility]), where she had been hospitalized briefly before refusing to take medications and being discharged. Patient's urine screen at time of admission was positive for cannabis. Patient has a long history of psychosis with associated bipolar mood swings. She has a long history of poor medication compliance as well. PROGRESS ON THE UNIT: Patient was quite psychotic on the unit. She was inappropriate, dancing and yelling in the corridor. She did not respond to staff structure. She was started on lithium, Risperdal, and Seroquel. Patient was noted to be quite paranoid and responding to internal stimuli. Patient was started on Haldol 5 mg twice a day for her treatment resistant psychosis with marginal benefit. Her Seroquel was increased with marginal benefit. Plans were made for her to be transferred to [facility] for long-term care. Patient was then started on oral Invega 6 mg daily, this was tolerated well. Her psychotic symptoms improved, she became less paranoid, bipolar symptoms and laura also improved. Due to her history of noncompliance on oral medication over the decades, a trial on a long-acting injectable was proposed to the patient. She was agreeable to such a trial. She was given a loading dose of Invega Sustenna, which was reasonably well tolerated in the deltoid muscle. Her second loading dose was given in the gluteal muscle with better tolerance. The patient is due for another monthly injection on or about 09/01/2017. I would recommend a dose of Invega Sustenna 117 mg IM at that time. Patient does have a history of an alcohol use disorder. Patient asked about alcohol consumption after discharge. She admits that she will drink up to five or six beers to get intoxicated. This was not recommended. She will be living with her father, who drinks frequently. This is a major temptation for her. It is recommended that she drink one or two beers at most on an occasion. She has plans to work with her patient case coordinator to move from her father's house back to the [facility], where she has more social supports. The patient was agreeable to outpatient mental health treatment followup. MENTAL STATUS EXAMINATION: At the time of discharge, mood and affect appeared much improved. She no longer showed signs of laura. She is not depressed. She is not suicidal nor homicidal. Psychosis also had resolved. Paranoia had resolved completely, as was the case for her thought disorder. Speech was no longer pressured. Insight and judgment seem improved. No signs of dangerousness. Grooming and hygiene appeared good. ASSESSMENT: Patient appears to have reached maximal hospital benefit. PLAN: Discharged to the community to her father's house. Followup at her local mental health center. Patient to be maintained on her lithium and Invega injection as described above.
== END 2017-08-01 12:00 | disposition home or self-care (01) | DRG 750 ==
LOC: M ED 11:42 → M ED INP 17:25 → M PSY 20:10
PROVIDERS: ADMIT Psychiatry & Neurology Psychiatry; ATTEND Psychiatry & Neurology Psychiatry
DX: F25.0 Schizoaffective disorder, bipolar type (principal); R55 Syncope and collapse; F12.10 Cannabis abuse, uncomplicated; K21.9 Gastro-esophageal reflux disease without esophagitis; M54.9 Dorsalgia, unspecified; F10.10 Alcohol abuse, uncomplicated; K58.9 Irritable bowel syndrome, unspecified; F17.210 Nicotine dependence, cigarettes, uncomplicated; Z79.899 Other long term (current) drug therapy; Z88.0 Allergy status to penicillin; Z91.018 Allergy to other foods; Z91.040 Latex allergy status; Z91.010 Allergy to peanuts; Z88.6 Allergy status to analgesic agent; Z88.8 Allergy status to other drugs, medicaments and biological substances

== ENCOUNTER → 2017-10-03 | Outpatient (CLI) | payer OTHER ==
[2017-10-03 10:36] LABS: BASO % 0.6 % (0.0-1.0); EOS # 0.3 10^3/uL (0.0-0.50); EOS % 3.9 % (0.0-3.0); HEMATOCRIT 42.1 % (36.0-47.0); HEMOGLOBIN 14.6 g/dl (12.0-16.0); IMMATURE GRANULOCYTE % 0.1 % (0-3.0); LYMPH # 3.2 10^3/uL (1.5-4.5); LYMPH % 46.9 % (24.0-44.0); MEAN CORPUSCULAR HEMOGLOBIN 30.3 pg (27.0-33.0); MEAN CORPUSCULAR HGB CONC 34.7 g/dl (32.0-36.5); MEAN CORPUSCULAR VOLUME 87.3 fl (80.0-96.0); MONO # 0.7 10^3/uL (0.0-0.8); MONO % 10.4 % (0.0-5.0); NEUTROPHILS # 2.6 10^3/uL (1.8-7.7); NEUTROPHILS % 38.1 % (36.0-66.0); PLATELET COUNT, AUTOMATED 225 10^3/uL (150-450); RED BLOOD COUNT 4.82 10^6/uL (4.00-5.40); RED CELL DISTRIBUTION WIDTH 11.4 % (11.5-14.5); WHITE BLOOD COUNT 6.7 10^3/uL (4.0-10.0)
[2017-10-03 10:55] LABS: ESTIMATED AVERAGE GLUCOSE 108 MG/DL (60-110); HEMOGLOBIN A1c 5.4 %
[2017-10-03 11:09] LABS: ALBUMIN 3.9 GM/DL (3.2-5.2); ALBUMIN/GLOBULIN RATIO 1.11 (1.00-1.93); ALKALINE PHOSPHATASE 61 U/L (45-117); ALT/SGPT 18 U/L (12-78); ANION GAP 7 MEQ/L (8-16); AST/SGOT 10 U/L (7-37); BILIRUBIN,TOTAL 0.4 MG/DL (0.2-1.0); BLOOD UREA NITROGEN 11 MG/DL (7-18); CALCIUM LEVEL 8.9 MG/DL (8.5-10.1); CARBON DIOXIDE LEVEL 28 MEQ/L (21-32); CHLORIDE LEVEL 105 MEQ/L (98-107); CHOLESTEROL LEVEL 202 MG/DL (<200); CREATININE FOR GFR 0.64 MG/DL (0.55-1.30); GLOMERULAR FILTRATION RATE > 60.0 (>60); GLUCOSE, FASTING 86 MG/DL (70-100); HDL CHOLESTEROL 51 MG/DL (>40); LDL CHOLESTEROL 96.8 MG/DL (<100); NON-HDL-C 151 MG/DL; POTASSIUM SERUM 4.1 MEQ/L (3.5-5.1); SODIUM LEVEL 140 MEQ/L (136-145); THYROID STIMULATING HORMONE 0.887 uIU/ML (0.358-3.740); TOTAL PROTEIN 7.4 GM/DL (6.4-8.2); TRIGLYCERIDES LEVEL 271 MG/DL (<150)
[2017-10-03 11:51] LABS: PROLACTIN 79.6 NG/ML; TOTAL 25(OH) VITAMIN D 64.5 NG/ML (30.0-100.0)
[2017-10-03 11:54] LABS: VITAMIN B12 LEVEL 473 PG/ML (247-911)
== END ==
LOC: M LAB 09:47
DX: F25.0 Schizoaffective disorder, bipolar type (principal)
CPT/HCPCS: 84146

== ENCOUNTER → 2017-10-15 | Outpatient (CLI) | payer OTHER ==
[2017-10-15 23:26] LABS: CHLAMYDIA DNA AMPLIFICATION NEGATIVE (NEGATIVE); GC DNA AMPLIFICATION NEGATIVE (NEGATIVE)
[2017-10-17 10:35] LABS: HEPATITIS B SURFACE ANTIGEN NEGATIVE (NEGATIVE)
[2017-10-17 10:57] LABS: HEPATITIS B CORE ANTIBODY IGM NEGATIVE (NEGATIVE); HIV 1&2 SCREEN CENTAUR NEGATIVE (NEGATIVE)
[2017-10-17 10:58] LABS: HEPATITIS A ANTIBODY IGM NEGATIVE (NEGATIVE)
== END ==
LOC: M SMT 15:12
DX: Z11.3 Encounter for screening for infections with a predominantly sexual mode of transmission (principal)
CPT/HCPCS: 87340

== ENCOUNTER → 2018-05-12 | Outpatient (REF) | payer OTHER ==
[2018-05-12 18:26] LABS: ALBUMIN 3.9 GM/DL (3.2-5.2); ALBUMIN/GLOBULIN RATIO 1.11 (1.00-1.93); ALKALINE PHOSPHATASE 45 U/L (45-117); ALT/SGPT 23 U/L (12-78); ANION GAP 11 MEQ/L (8-16); AST/SGOT 14 U/L (7-37); BILIRUBIN,TOTAL 0.3 MG/DL (0.2-1.0); BLOOD UREA NITROGEN 9 MG/DL (7-18); CALCIUM LEVEL 9.5 MG/DL (8.5-10.1); CARBON DIOXIDE LEVEL 26 MEQ/L (21-32); CHLORIDE LEVEL 103 MEQ/L (98-107); CREATININE FOR GFR 0.73 MG/DL (0.55-1.30); GLOMERULAR FILTRATION RATE > 60.0 (>60); GLUCOSE, FASTING 107 MG/DL (70-100); IRON (FE) 81 UG/DL (50-170); POTASSIUM SERUM 4.3 MEQ/L (3.5-5.1); SODIUM LEVEL 140 MEQ/L (136-145); TOTAL PROTEIN 7.4 GM/DL (6.4-8.2)
[2018-05-12 18:27] LABS: BASO # 0.1 10^3/uL (0.0-0.2); BASO % 0.7 % (0.0-1.0); EOS # 0.3 10^3/uL (0.0-0.50); EOS % 4.3 % (0.0-3.0); HEMATOCRIT 39.9 % (36.0-47.0); HEMOGLOBIN 13.9 g/dl (12.0-15.5); IMMATURE GRANULOCYTE % 0.1 % (0-3.0); LYMPH % 41.5 % (24.0-44.0); MEAN CORPUSCULAR HGB CONC 34.8 g/dl (32.0-36.5); MEAN CORPUSCULAR VOLUME 89.1 fl (80.0-96.0); MONO # 0.6 10^3/uL (0.0-0.8); NEUTROPHILS # 3.3 10^3/uL (1.8-7.7); NEUTROPHILS % 45.4 % (36.0-66.0); PLATELET COUNT, AUTOMATED 283 10^3/uL (150-450); RED BLOOD COUNT 4.48 10^6/uL (4.00-5.40); RED CELL DISTRIBUTION WIDTH 11.9 % (11.5-14.5); WHITE BLOOD COUNT 7.3 10^3/uL (4.0-10.0)
== END ==
LOC: M LAB REF 16:32
DX: R53.81 Other malaise (principal)
CPT/HCPCS: 83540

== ENCOUNTER → 2018-05-22 | Outpatient (CLI) | payer OTHER ==
[2018-05-22 11:08] LABS: BASO # 0.1 10^3/uL (0.0-0.2); BASO % 0.7 % (0.0-1.0); EOS # 0.5 10^3/uL (0.0-0.50); HEMATOCRIT 42.8 % (36.0-47.0); HEMOGLOBIN 14.6 g/dl (12.0-15.5); IMMATURE GRANULOCYTE % 0.3 % (0-3.0); LYMPH # 2.6 10^3/uL (1.5-4.5); LYMPH % 38.1 % (24.0-44.0); MEAN CORPUSCULAR HEMOGLOBIN 31.3 pg (27.0-33.0); MEAN CORPUSCULAR HGB CONC 34.1 g/dl (32.0-36.5); MEAN CORPUSCULAR VOLUME 91.6 fl (80.0-96.0); MONO # 0.7 10^3/uL (0.0-0.8); MONO % 9.7 % (0.0-5.0); NEUTROPHILS % 44.2 % (36.0-66.0); PLATELET COUNT, AUTOMATED 268 10^3/uL (150-450); RED BLOOD COUNT 4.67 10^6/uL (4.00-5.40); RED CELL DISTRIBUTION WIDTH 12.3 % (11.5-14.5); WHITE BLOOD COUNT 6.8 10^3/uL (4.0-10.0)
[2018-05-22 11:31] LABS: ESTIMATED AVERAGE GLUCOSE 105 MG/DL (60-110); HEMOGLOBIN A1c 5.3 %
[2018-05-22 11:38] LABS: ALBUMIN 3.6 GM/DL (3.2-5.2); ALBUMIN/GLOBULIN RATIO 0.95 (1.00-1.93); ALKALINE PHOSPHATASE 42 U/L (45-117); ALT/SGPT 25 U/L (12-78); ANION GAP 9 MEQ/L (8-16); AST/SGOT 21 U/L (7-37); BILIRUBIN,DIRECT 0.1 MG/DL (0.0-0.2); BILIRUBIN,TOTAL 0.5 MG/DL (0.2-1.0); BLOOD UREA NITROGEN 11 MG/DL (7-18); CALCIUM LEVEL 8.6 MG/DL (8.5-10.1); CARBON DIOXIDE LEVEL 28 MEQ/L (21-32); CHLORIDE LEVEL 107 MEQ/L (98-107); CHOLESTEROL LEVEL 241 MG/DL (<200); CREATININE FOR GFR 0.71 MG/DL (0.55-1.30); GLOMERULAR FILTRATION RATE > 60.0 (>60); GLUCOSE, FASTING 92 MG/DL (70-100); GLUCOSE,RANDOM 92 MG/DL (LESS THAN 200); HDL CHOLESTEROL 61 MG/DL (>40); LDL CHOLESTEROL 135 MG/DL (<100); NON-HDL-C 180 MG/DL; PHOSPHORUS LEVEL 2.8 MG/DL (2.5-4.9); SODIUM LEVEL 144 MEQ/L (136-145); THYROID STIMULATING HORMONE 0.691 uIU/ML (0.358-3.740); TOTAL PROTEIN 7.4 GM/DL (6.4-8.2); TRIGLYCERIDES LEVEL 224 MG/DL (<150)
== END ==
LOC: M LAB 10:02
DX: F25.0 Schizoaffective disorder, bipolar type (principal)
CPT/HCPCS: 93005

== ENCOUNTER 2018-07-28 20:36 | Emergency (ER) | payer OTHER ==
[2018-07-28] MEDS: TETANUS/DIPHTHERIA TOX ADSORB ADULT 0.5ML SYR/VIAL (90714) IM (21:10)
== END 2018-07-28 22:35 | disposition home or self-care (01) ==
LOC: M ED 20:36
DX: S01.01XA Laceration without foreign body of scalp, initial encounter (principal); Y92.9 Unspecified place or not applicable; W07.XXXA Fall from chair, initial encounter
CPT/HCPCS: 90714

== ENCOUNTER → 2019-02-03 | Outpatient (CLI) | payer OTHER ==
[~2019-02-03] MED LIST changes: -/PANT40TA PO; -/QUET10TA PO; -ASCO25TA PO; +DRIS50003 PO; +INVE117I IM; +LITH300C PO; +MELO15TA28 PO; -MELO15TA4 PO; -MENSTAB PO; +NAPR-837 PO; -NAPR500T PO; +OMEP40CA2 PO; -OXCA300T PO; +OXCA300T14 PO; +PROT1TAB2 PO; +SERO1TAB PO; +TIZA4CAP PO; -TIZA4CAP3 PO; -VITA1CAP40; -VITA1CAP40 PO; +VITA1TAB23 PO; +VITA50005; +VITA50005 PO; +VRAY1.5C PO; +[UNRECOGNIZED DRUG - CODE] PO
[2019-02-03 19:29] LABS: CHLAMYDIA DNA AMPLIFICATION NEGATIVE (NEGATIVE); GC DNA AMPLIFICATION NEGATIVE (NEGATIVE)
[2019-02-05 10:33] LABS: HEPATITIS A ANTIBODY IGM NEGATIVE (NEGATIVE); HEPATITIS B CORE ANTIBODY IGM NEGATIVE (NEGATIVE); HEPATITIS B SURFACE ANTIGEN NEGATIVE (NEGATIVE); HIV 1&2 SCREEN CENTAUR NEGATIVE (NEGATIVE)
== END ==
LOC: M SMT 14:28
PROVIDERS: ATTEND Advanced Practice Midwife
DX: Z11.3 Encounter for screening for infections with a predominantly sexual mode of transmission (principal)

== ENCOUNTER → 2019-02-16 | Outpatient (CLI) | payer OTHER ==
[~2019-02-16] MED LIST changes: -OMEP40CA2 PO; +OMEP40CA97 PO; -SERT-155 PO; +SERT50TA29 PO
--- NOTE | 2019-02-16 15:08 | PFTRPT ---
Site: [facility], [address] [place] [address], [id number] ID: [id number] Name: LUCHO BELL Visit Date: 02/16/2019 Second ID: [id number] Referring Doctor: Roc Yusuf MD Reviewing Doctor: Roc Yusuf MD Space Studies Faculty Member: Mabel SINGH, RANDY Age: 33 : 1985 Sex: Female Race: Height: 60.00 Inches Weight: 170.00 Lbs BSA: 1.74 Order IDs: [id number] Requested Test(s): <RESP-PFT.DLCO> Diagnosis: R06.02 of albuterol for postbronchodilator. The results of this test meet the ATS standards for acceptability and repeatability. Review Status: Not Reviewed Pre-Bronch Post-Bronch Pred Actual %Pred Actual %Chng SPIROMETRY FVC (L) 3.27 3.04 92 3.01 FEV1 (L) 2.73 2.58 94 2.65 2 FEV1/FVC (%) 83 85 102 88 3 FEF 25% (L/sec) 5.14 4.83 93 5.51 14 FEF 50% (L/sec) 4.33 3.93 90 4.65 18 FEF 75% (L/sec) 1.77 1.26 71 1.50 18 FEF 25-75% (L/sec) 3.05 3.05 100 3.51 14 FEF Max (L/sec) 6.41 5.81 90 5.86 FIVC (L) 2.93 2.99 2 FIF 50% (L/sec) 3.93 3.99 101 4.58 14 FIF Max (L/sec) 4.08 4.63 13 MVV (L/min) 97 108 111 Expiratory Time (sec) 6.97 6.93 Back Extrap Vol (L) 0.08 0.09 5 Time To FEFmax (sec) 0.147 0.114 -22 LUNG VOLUMES SVC (L) 3.15 3.05 96 IC (L) 2.03 2.17 106 ERV (L) 1.12 0.88 78 TGV (L) 2.42 2.56 105 RV (Pleth) (L) 1.30 1.68 129 TLC (Pleth) (L) 4.45 4.74 106 RV/TLC (Pleth) (%) 29 36 122 DIFFUSION DLCOunc (ml/min/mmHg) 22.70 21.82 96 DLCOcor (ml/min/mmHg) 22.70 22.17 97 DL/VA (ml/min/mmHg/L) 5.10 5.11 100 VA (L) 4.45 4.33 97 BHT (sec) 9.96 IVC (L) 3.02 TLC (SB) (L) 4.48 AIRWAYS RESISTANCE Raw (cmH2O/L/s) 1.86 1.51 81 Gaw (L/s/cmH2O) 1.03 0.69 67 sRaw (cmH2O*s) 4.76 4.15 87 sGaw (1/cmH2O*s) 0.20 0.25 126 BLOOD GASES Hgb (gm/dL) 12.9
== END ==
LOC: M CARPUL 14:31
PROVIDERS: ATTEND Internal Medicine Pulmonary Disease
DX: R06.02 Shortness of breath (principal)

== ENCOUNTER → 2019-02-17 | Outpatient (REF) ==
[~2019-02-17] MED LIST changes: +OMEP40CA2 PO; -OMEP40CA97 PO; +SERT-155 PO; -SERT50TA29 PO
--- NOTE | 2019-02-17 13:53 | REP ---
Clinical: Pain and disability. Technique: AP, lateral, coned-down views of the lumbosacral spine. Findings: Alignment and lordosis maintained. Vertebral bodies are intact. Disc spaces appear normal. Impression: Normal age appropriate lumbosacral spine radiograph series. If the patient remains symptomatic consider MRI for further investigation. Electronically Signed by Kaden Aguilar MD 02/17/2019 01:44 P
== END ==
LOC: M SMT 11:12
PROVIDERS: ATTEND Internal Medicine
DX: Z00.00 Encounter for general adult medical examination without abnormal findings (principal)

== ENCOUNTER → 2019-02-24 | Outpatient (REF) | payer OTHER ==
[2019-02-26 14:09] LABS: HPV HYBRID CAPTURE II Negative (Negative)
== END ==
LOC: M LAB REF 18:25
PROVIDERS: ATTEND Advanced Practice Midwife
DX: Z12.4 Encounter for screening for malignant neoplasm of cervix (principal)

== ENCOUNTER → 2019-03-08 | Outpatient (REF) | payer OTHER ==
[2019-03-08 21:41] LABS: APPEARANCE, URINE HAZY (CLEAR); BACTERIA, URINE AUTO NEGATIVE (NEGATIVE); BILIRUBIN, URINE AUTO NEGATIVE (NEGATIVE); BLOOD, URINE BLOOD 2+ (NEGATIVE); COLOR, URINE YELLOW (YELLOW); GLUCOSE, URINE (UA) AUTO NEGATIVE (NEGATIVE); KETONE, URINE AUTO NEGATIVE (NEGATIVE); LEUKOCYTE ESTERASE, URINE AUTO 1+ (NEGATIVE); MUCUS, URINE SMALL (NEGATIVE); NITRITE, URINE AUTO NEGATIVE (NEGATIVE); PROTEIN, URINE AUTO NEGATIVE (NEGATIVE); RBC, URINE AUTO 3 /HPF (0-3); SPECIFIC GRAVITY URINE AUTO 1.021 (1.002-1.035); SQUAMOUS EPITHELIAL CELL UR AU 1 /HPF (0-6); UROBILINOGEN, URINE AUTO 0.2 mg/dL (0.0-2.0); WBC, URINE AUTO 10 /HPF (0-3)
== END ==
LOC: M LAB REF 09:30
PROVIDERS: ATTEND Physician Assistant Medical
DX: N39.0 Urinary tract infection, site not specified (principal)

== ENCOUNTER → 2019-04-25 | Outpatient (REF) | payer OTHER ==
[~2019-04-25] MED LIST changes: -OMEP40CA2 PO; +OMEP40CA97 PO; -SERT-155 PO; +SERT50TA29 PO
[2019-04-25 16:28] LABS: AMORPHOUS SEDIMENT SMALL (NEGATIVE); APPEARANCE, URINE CLOUDY (CLEAR); BACTERIA, URINE AUTO 1+ (NEGATIVE); BILIRUBIN, URINE AUTO NEGATIVE (NEGATIVE); BLOOD, URINE BLOOD 2+ (NEGATIVE); COLOR, URINE YELLOW (YELLOW); GLUCOSE, URINE (UA) AUTO NEGATIVE (NEGATIVE); KETONE, URINE AUTO NEGATIVE (NEGATIVE); LEUKOCYTE ESTERASE, URINE AUTO 3+ (NEGATIVE); MUCUS, URINE SMALL (NEGATIVE); NITRITE, URINE AUTO POSITIVE (NEGATIVE); PROTEIN, URINE AUTO 1+ mg/dL (NEGATIVE); RBC, URINE AUTO 9 /HPF (0-3); SPECIFIC GRAVITY URINE AUTO 1.016 (1.002-1.035); SQUAMOUS EPITHELIAL CELL UR AU 2 /HPF (0-6); TRANSITIONAL EPITHELIAL AUTO 1 /HPF; UROBILINOGEN, URINE AUTO 0.2 mg/dL (0.0-2.0); WBC, URINE AUTO TNTC /HPF (0-3)
== END ==
LOC: M LAB REF 11:28
PROVIDERS: ATTEND Nurse Practitioner Family
DX: N39.0 Urinary tract infection, site not specified (principal)

== ENCOUNTER → 2019-09-04 | Outpatient (CLI) | payer OTHER ==
--- NOTE | 2019-09-04 11:46 | REP ---
Left shoulder: Three views. History: Restricted range of motion and pain. Findings: The left glenohumeral and acromioclavicular joints are normally aligned. Periarticular soft tissues are unremarkable. No fracture or subluxation is seen. Impression: Negative radiographs of the left shoulder. Electronically Signed by Derrell Matamoros MD 09/04/2019 11:38 A
== END ==
LOC: M RAD 11:15
PROVIDERS: ATTEND Nurse Practitioner Family
DX: M25.512 Pain in left shoulder (principal)

== ENCOUNTER → 2019-09-23 | Outpatient (CLI) | payer OTHER ==
--- NOTE | 2019-09-23 07:53 | REP ---
Limited abdominal ultrasound for splenomegaly: Comparison is the abdomen/pelvis CT dated 06/16/2013. Ultrasound is noted in the abdominal left upper quadrant: The spleen measures 10.2 x 4.1 x 10.0 cm and is normal size. The splenic parenchyma is homogeneous and unremarkable. The left kidney measures 11.5 x 4.8 x 5.3 cm and is normal size. There is a focal hyperdensity in the mid left kidney. Cortex measuring 8.8 x 7 mm. This is nonspecific and could represent a hyperdense cyst or possibly an angiomyolipoma. Upon review of the comparison CT there are two tiny renal cortical cysts, one at the mid pole laterally measuring 6 mm and the other at the lower pole laterally measuring 6 mm. The The ultrasound today. There are no renal calculi. There is no hydronephrosis. Impression: The spleen is normal size, homogeneous and otherwise unremarkable. The left kidney is unremarkable except for a focal hyperechogenic nodule measuring approximately 8 mm in diameter. This is nonspecific and could represent a hyperdense cyst or angiomyolipoma. Electronically Signed by Cem Clay MD 09/23/2019 07:45 A
== END ==
LOC: M RAD 06:42
PROVIDERS: ATTEND Physician Assistant Medical
DX: R10.12 Left upper quadrant pain (principal)

== ENCOUNTER → 2019-10-24 | Outpatient (REF) | payer OTHER ==
[2019-10-24 14:50] LABS: APPEARANCE, URINE CLOUDY (CLEAR); BACTERIA, URINE AUTO NEGATIVE (NEGATIVE); BILIRUBIN, URINE AUTO NEGATIVE (NEGATIVE); BLOOD, URINE BLOOD 2+ (NEGATIVE); COLOR, URINE YELLOW (YELLOW); GLUCOSE, URINE (UA) AUTO NEGATIVE (NEGATIVE); KETONE, URINE AUTO NEGATIVE (NEGATIVE); LEUKOCYTE ESTERASE, URINE AUTO 3+ (NEGATIVE); MUCUS, URINE SMALL (NEGATIVE); NITRITE, URINE AUTO NEGATIVE (NEGATIVE); PROTEIN, URINE AUTO NEGATIVE (NEGATIVE); RBC, URINE AUTO 3 /HPF (0-3); SPECIFIC GRAVITY URINE AUTO 1.008 (1.002-1.035); SQUAMOUS EPITHELIAL CELL UR AU 1 /HPF (0-6); UROBILINOGEN, URINE AUTO 0.2 mg/dL (0.0-2.0); WBC, URINE AUTO TNTC /HPF (0-3)
== END ==
LOC: M LAB REF 14:19
PROVIDERS: ATTEND Physician Assistant Medical
DX: N39.0 Urinary tract infection, site not specified (principal)

== ENCOUNTER → 2020-01-13 | Outpatient (REF) | payer OTHER, MEDICAID ==
[~2020-01-13] MED LIST changes: +CYCL-707 PO; -CYCL10TA PO
[2020-01-13 20:44] LABS: ALBUMIN 3.8 GM/DL (3.2-5.2); ALT/SGPT 28 U/L (12-78); AMYLASE 37 U/L (25-115); BILIRUBIN,TOTAL 0.5 MG/DL (0.2-1.0); BLOOD UREA NITROGEN 8 MG/DL (7-18); CALCIUM LEVEL 9.2 MG/DL (8.5-10.1); CARBON DIOXIDE LEVEL 24 MEQ/L (21-32); CHLORIDE LEVEL 107 MEQ/L (98-107); CHOLESTEROL LEVEL 219 MG/DL (<200); CHOLESTEROL RISK RATIO 3.842 (<5); CREATININE FOR GFR 0.74 MG/DL (0.55-1.30); FREE T4 1.13 NG/DL (0.76-1.46); GLOMERULAR FILTRATION RATE > 60.0 (>60); GLUCOSE, FASTING 89 MG/DL (70-100); HDL CHOLESTEROL 57 MG/DL (>40); LDL CHOLESTEROL 109 MG/DL (<100); LIPASE 71 U/L (73-393); NON-HDL-C 162 MG/DL; POTASSIUM SERUM 4.2 MEQ/L (3.5-5.1); SODIUM LEVEL 142 MEQ/L (136-145); THYROID STIMULATING HORMONE 0.869 uIU/ML (0.358-3.740); TOTAL PROTEIN 7.5 GM/DL (6.4-8.2); TRIGLYCERIDES LEVEL 263 MG/DL (<150)
[2020-01-13 20:47] LABS: TOTAL 25(OH) VITAMIN D 86.1 NG/ML (30.0-100.0)
[2020-01-13 20:52] LABS: BASO # 0.1 10^3/uL (0.0-0.2); BASO % 0.8 % (0.0-1.0); EOS # 0.6 10^3/uL (0.0-0.5); EOS % 6.8 % (0.0-3.0); HEMATOCRIT 42.7 % (36.0-47.0); LYMPH # 4.1 10^3/uL (1.5-5.0); LYMPH % 47.2 % (24.0-44.0); MEAN CORPUSCULAR HEMOGLOBIN 30.4 pg (27.0-33.0); MEAN CORPUSCULAR HGB CONC 32.8 g/dl (32.0-36.5); MEAN CORPUSCULAR VOLUME 92.6 fl (80.0-96.0); MONO # 0.7 10^3/uL (0.0-0.8); MONO % 7.6 % (0.0-5.0); NEUTROPHILS # 3.2 10^3/uL (1.5-8.5); NEUTROPHILS % 37.4 % (36.0-66.0); PLATELET COUNT, AUTOMATED 291 10^3/uL (150-450); RED BLOOD COUNT 4.61 10^6/uL (4.00-5.40); WHITE BLOOD COUNT 8.6 10^3/uL (4.0-10.0)
== END ==
LOC: M LAB REF 17:15
PROVIDERS: ATTEND Nurse Practitioner Family
DX: R10.12 Left upper quadrant pain (principal); R53.81 Other malaise; E66.3 Overweight; Z13.9 Encounter for screening, unspecified; E78.5 Hyperlipidemia, unspecified; E05.90 Thyrotoxicosis, unspecified without thyrotoxic crisis or storm; K21.9 Gastro-esophageal reflux disease without esophagitis

== ENCOUNTER → 2020-01-31 | Outpatient (CLI) | payer OTHER ==
[2020-01-31 17:24] LABS: HEMATOCRIT 41.9 % (36.0-47.0); HEMOGLOBIN 14.4 g/dl (12.0-15.5); MEAN CORPUSCULAR HEMOGLOBIN 31.4 pg (27.0-33.0); MEAN CORPUSCULAR HGB CONC 34.4 g/dl (32.0-36.5); MEAN CORPUSCULAR VOLUME 91.3 fl (80.0-96.0); PLATELET COUNT, AUTOMATED 264 10^3/uL (150-450); RED BLOOD COUNT 4.59 10^6/uL (4.00-5.40); WHITE BLOOD COUNT 9.3 10^3/uL (4.0-10.0)
[2020-01-31 18:16] LABS: ALBUMIN 3.8 GM/DL (3.2-5.2); ALT/SGPT 54 U/L (12-78); BILIRUBIN,DIRECT < 0.1 MG/DL (0.0-0.2); BILIRUBIN,TOTAL 0.6 MG/DL (0.2-1.0); BLOOD UREA NITROGEN 6 MG/DL (7-18); CALCIUM LEVEL 9.6 MG/DL (8.5-10.1); CARBON DIOXIDE LEVEL 25 MEQ/L (21-32); CHLORIDE LEVEL 105 MEQ/L (98-107); CREATININE FOR GFR 0.79 MG/DL (0.55-1.30); GLOMERULAR FILTRATION RATE > 60.0 (>60); GLUCOSE, FASTING 117 MG/DL (70-100); PHOSPHORUS LEVEL 3.4 MG/DL (2.5-4.9); POTASSIUM SERUM 3.8 MEQ/L (3.5-5.1); SODIUM LEVEL 140 MEQ/L (136-145); TOTAL PROTEIN 7.3 GM/DL (6.4-8.2)
== END ==
LOC: M LAB 16:16
PROVIDERS: ATTEND Podiatrist Foot & Ankle Surgery
DX: Z51.81 Encounter for therapeutic drug level monitoring (principal); Z79.899 Other long term (current) drug therapy; B35.1 Tinea unguium

== ENCOUNTER → 2020-03-03 | Outpatient (CLI) | payer OTHER ==
[~2020-03-03] MED LIST changes: -VITA1TAB23 PO; +VITA250T20 PO
[2020-03-03 11:59] LABS: HEMATOCRIT 40.1 % (36.0-47.0); HEMOGLOBIN 13.6 g/dl (12.0-15.5); MEAN CORPUSCULAR HEMOGLOBIN 30.6 pg (27.0-33.0); MEAN CORPUSCULAR HGB CONC 33.9 g/dl (32.0-36.5); MEAN CORPUSCULAR VOLUME 90.3 fl (80.0-96.0); PLATELET COUNT, AUTOMATED 247 10^3/uL (150-450); RED BLOOD COUNT 4.44 10^6/uL (4.00-5.40); WHITE BLOOD COUNT 8.5 10^3/uL (4.0-10.0)
[2020-03-03 12:19] LABS: ALBUMIN 3.8 GM/DL (3.2-5.2); ALT/SGPT 32 U/L (12-78); BILIRUBIN,DIRECT < 0.1 MG/DL (0.0-0.2); BILIRUBIN,TOTAL 0.3 MG/DL (0.2-1.0); BLOOD UREA NITROGEN 5 MG/DL (7-18); CALCIUM LEVEL 9.1 MG/DL (8.5-10.1); CARBON DIOXIDE LEVEL 28 MEQ/L (21-32); CHLORIDE LEVEL 105 MEQ/L (98-107); CREATININE FOR GFR 0.78 MG/DL (0.55-1.30); GLOMERULAR FILTRATION RATE > 60.0 (>60); GLUCOSE, FASTING 120 MG/DL (70-100); PHOSPHORUS LEVEL 2.3 MG/DL (2.5-4.9); SODIUM LEVEL 139 MEQ/L (136-145); TOTAL PROTEIN 7.2 GM/DL (6.4-8.2)
== END ==
LOC: M LAB 11:17
PROVIDERS: ATTEND Podiatrist Foot & Ankle Surgery
DX: B35.1 Tinea unguium (principal); Z79.899 Other long term (current) drug therapy

== ENCOUNTER 2020-07-19 23:09 | Day surgery (SDC) | payer OTHER ==
[~2020-07-19] VITALS: Ht 152.4 cm; Wt 84.6 kg
[~2020-07-19 23:09] MED LIST changes: +NICO1DIS12 TD; -NICO21DI31 TD
[2020-07-19] MEDS ORDERED: LARI1TAB PO (23:17)
[2020-07-20] MEDS ORDERED: GLUCAGON INJ 1MG VIAL IV STA (00:14)
--- NOTE | 2020-07-20 00:34 | REPVR ---
PROCEDURE INFORMATION: Exam: XR Soft Tissue Neck Exam date and time: 07/20/2020 12:22 AM Age: 35 years old Clinical indication: Painful swallowing; Additional info: Fb TECHNIQUE: Imaging protocol: XR of the soft tissues of the neck. COMPARISON: No relevant prior studies available. FINDINGS: Limitations: Neck is not well evaluated inferior to the C6-C7 level. Airway: Normal. No abnormal narrowing. No radiopaque foreign body. Soft tissues: Normal. Normal epiglottis. No radiopaque foreign body. Bones/joints: Unremarkable. IMPRESSION: No radiopaque foreign body. Electronically signed by: Alejandrina You On 07/20/2020 00:35:02 AM
--- NOTE | 2020-07-20 00:35 | REPVR ---
PROCEDURE INFORMATION: Exam: XR Abdomen, 1 View Exam date and time: 07/20/2020 12:22 AM Age: 35 years old Clinical indication: Abdominal pain; Additional info: Abd pain TECHNIQUE: Imaging protocol: XR of the abdomen. Views: Frontal supine view of the abdomen. 1 View. COMPARISON: No relevant prior studies available. FINDINGS: Limitations: Diaphragm is partially cut off the film. Gastrointestinal tract: Normal. No bowel dilation. Moderate stool in the colon. Intraperitoneal space: Status post right upper quadrant surgery. Bones/joints: Unremarkable. IMPRESSION: No abnormal bowel dilatation. Electronically signed by: Alejandrina You On 07/20/2020 00:36:03 AM
[2020-07-20] MEDS ORDERED: OMEP-218 PO (02:46)
[2020-07-20] MEDS ORDERED: VITA50005 PO (02:46)
[2020-07-20] MEDS ORDERED: PEPT262S PO (02:46)
[2020-07-20] MEDS ORDERED: VRAY3CAP PO (02:46)
[2020-07-20] MEDS ORDERED: LARI1TAB PO (02:46)
[2020-07-20] MEDS ORDERED: TUMS500C PO (02:46)
[2020-07-20] MEDS ORDERED: AZO1CAP PO (02:46)
[2020-07-20] MEDS ORDERED: SIME80TA PO (02:46)
[2020-07-20] MEDS ORDERED: LIDOCAINE 2% 100MG/5ML SDV (FOR ANES.) As Ordered ONE (03:11)
[2020-07-20] MEDS ORDERED: MIDAZOLAM INJ 2MG/2ML VIAL (J2250 PER 1MG) As Ordered ONE (03:11)
[2020-07-20] MEDS ORDERED: fentaNYL 100 MCG/2 ML INJECTION (J3010) As Ordered ONE (03:11)
[2020-07-20] MEDS ORDERED: propofoL 200 MG/20 ML VIAL As Ordered ONE (03:11)
[2020-07-20] MEDS ORDERED: ROCURONIUM BROMIDE 50 MG/5 ML VIAL As Ordered ONE (03:12)
[2020-07-20] MEDS ORDERED: dexameTHASONE 4 MG/ML 1ML VIAL (J1100 PER 1MG) As Ordered ONE (03:12)
[2020-07-20] MEDS ORDERED: SUCCINYLCHOLINE 100 MG/5 ML SYRINGE (J0330) As Ordered ONE (03:12)
[2020-07-20] MEDS ORDERED: ONDANSETRON 4MG/2ML VIAL As Ordered ONE (03:12)
--- NOTE | 2020-07-20 04:14 | ROOR ---
Patient Name: Fabby Cabello Procedure Date: 07/20/2020 3:25 AM Date of : 1985 Age: 35 Room: Main OR Gender: Female Note Status: Finalized Procedure: Upper GI endoscopy Indications: Foreign body in the esophagus Providers: Ulises LIMA MD Referring MD: 3. Emergency Dept 3. Emergency Dept Requesting Provider: Medicines: Monitored Anesthesia Care Complications: No immediate complications. Procedure: Pre-Anesthesia Assessment: - The heart rate, respiratory rate, oxygen saturations, blood pressure, adequacy of pulmonary ventilation, and response to care were monitored throughout the procedure. The Endoscope was introduced through the mouth, and advanced to the second part of duodenum. The upper GI endoscopy was accomplished without difficulty. The patient tolerated the procedure well. Findings: Food was found in the lower third of the esophagus. Removal was accomplished with a gentle push with the tip of scope. Esophagitis was found at the gastroesophageal junction. The entire examined stomach was normal. The examined duodenum was normal. Impression: - Food was found in the esophagus. Removal was successful. - Reflux esophagitis. - Normal stomach. - Normal examined duodenum. Recommendation: - Use Prilosec (omeprazole) 40 mg PO daily. - Continue present medications. - Soft diet. - Advance diet as tolerated. - Return to referring physician as previously scheduled. Procedure Code(s): --- Professional --- 77223, Esophagogastroduodenoscopy, flexible, transoral; with removal of foreign body(s) Diagnosis Code(s): --- Professional --- T18.108A, Unspecified foreign body in esophagus causing other injury, initial encounter K21.0, Gastro-esophageal reflux disease with esophagitis T18.128A, Food in esophagus causing other injury, initial encounter CPT copyright 2019 [employer]. All rights reserved. The codes documented in this report are preliminary and upon medical biller coder review may be revised to meet current compliance requirements. Ulises Lima MD Ulises LIMA MD 07/20/2020 4:13:46 AM Electronically signed by Ulises LIMA MD Number of Addenda: 0 Note Initiated On: 07/20/2020 3:25 AM Estimated Blood Loss: Estimated blood loss: none.
[2020-07-20 04:45] VITALS: BP 109/74
[2020-07-20] MEDS ORDERED: fentaNYL 100 MCG/2 ML INJECTION (J3010) IV PRN (04:45)
[2020-07-20] MEDS ORDERED: ONDANSETRON 4MG/2ML VIAL IV PRN (04:45)
[2020-07-20] MEDS ORDERED: oxyCODONE 5MG TAB PO PRN (04:45)
[2020-07-20] MEDS ORDERED: HYDROMORPHONE HCL 0.5 MG/ 0.5 ML SYRINGE (J1170 PER 1) IV PRN (04:45)
[2020-07-20] MEDS ORDERED: LR 1,000 ML IV SCH (04:45)
[2020-07-20 05:23] VITALS: BP 111/74
[2020-07-20 06:00] VITALS: BP 111/71
[2020-07-20 06:30] VITALS: BP 110/72
[2020-07-20 10:00] VITALS: BP 111/71
== END 2020-07-20 11:22 | disposition home or self-care (01) ==
LOC: M ED 23:09 → M SDC 23:10 → M MSPAV 07-20 04:40 → M SDC 07-20 11:22
PROVIDERS: ATTEND Internal Medicine Gastroenterology
DX: T18.128A Food in esophagus causing other injury, initial encounter (principal); K21.00 Gastro-esophageal reflux disease with esophagitis, without bleeding; F31.9 Bipolar disorder, unspecified; Z79.899 Other long term (current) drug therapy; Z88.8 Allergy status to other drugs, medicaments and biological substances; Y92.89 Other specified places as the place of occurrence of the external cause
CPT/HCPCS: 43247; 70360; 74018; 96374; 99284; J0330; J1100; J1610; J2250; J2405; J3010; U0002

== ENCOUNTER → 2020-11-03 | Outpatient (CLI) | payer OTHER ==
[~2020-11-03] MED LIST changes: +AZO1CAP PO; +LARI1TAB PO; +OMEP-218 PO; +PEPT262S PO; +SIME80CH5 PO; -SIME80TA PO; +TUMS500C PO; +VRAY3CAP PO
[2020-11-03 09:04] LABS: BASO # 0.1 10^3/uL (0.0-0.2); BASO % 1.1 % (0.0-1.0); EOS # 0.7 10^3/uL (0.0-0.5); EOS % 7.4 % (0.0-3.0); HEMATOCRIT 41.9 % (36.0-47.0); HEMOGLOBIN 14.1 g/dl (12.0-15.5); LYMPH # 4.1 10^3/uL (1.5-5.0); LYMPH % 43.8 % (24.0-44.0); MEAN CORPUSCULAR HEMOGLOBIN 30.5 pg (27.0-33.0); MEAN CORPUSCULAR HGB CONC 33.7 g/dl (32.0-36.5); MEAN CORPUSCULAR VOLUME 90.5 fl (80.0-96.0); MONO # 0.9 10^3/uL (0.0-0.8); MONO % 9.2 % (2.0-8.0); NEUTROPHILS # 3.6 10^3/uL (1.5-8.5); NEUTROPHILS % 38.3 % (36.0-66.0); PLATELET COUNT, AUTOMATED 259 10^3/uL (150-450); RED BLOOD COUNT 4.63 10^6/uL (4.00-5.40); WHITE BLOOD COUNT 9.3 10^3/uL (4.0-10.0)
[2020-11-03 09:37] LABS: ALBUMIN 3.6 GM/DL (3.2-5.2); ALT/SGPT 19 U/L (12-78); BILIRUBIN,DIRECT < 0.1 MG/DL (0.0-0.2); BILIRUBIN,TOTAL 0.2 MG/DL (0.2-1.0); BLOOD UREA NITROGEN 8 MG/DL (7-18); CALCIUM LEVEL 8.9 MG/DL (8.5-10.1); CARBON DIOXIDE LEVEL 25 MEQ/L (21-32); CHLORIDE LEVEL 105 MEQ/L (98-107); CHOLESTEROL LEVEL 239 MG/DL (<200); CHOLESTEROL RISK RATIO 3.676 (<5); CREATININE FOR GFR 0.62 MG/DL (0.55-1.30); GLOMERULAR FILTRATION RATE > 60.0 (>60); GLUCOSE, FASTING 99 MG/DL (70-100); GLUCOSE,RANDOM 99 MG/DL (LESS THAN 200); HDL CHOLESTEROL 65 MG/DL (>40); LDL CHOLESTEROL 124 MG/DL (<100); NON-HDL-C 174 MG/DL; PHOSPHORUS LEVEL 3.4 MG/DL (2.5-4.9); POTASSIUM SERUM 4.1 MEQ/L (3.5-5.1); SODIUM LEVEL 137 MEQ/L (136-145); TOTAL PROTEIN 7.2 GM/DL (6.4-8.2); TRIGLYCERIDES LEVEL 248 MG/DL (<150)
[2020-11-03 10:28] LABS: HEMOGLOBIN A1c 5.4 %; TOTAL 25(OH) VITAMIN D 80.4 NG/ML (30.0-100.0)
== END ==
LOC: M LAB 07:43
PROVIDERS: ATTEND Registered Nurse
DX: F25.0 Schizoaffective disorder, bipolar type (principal)

== ENCOUNTER 2020-11-21 20:26 | Emergency (ER) | payer OTHER ==
[~2020-11-21] VITALS: Ht 152.4 cm; Wt 81.8 kg
[2020-11-21 20:34] VITALS: BP 167/91
[2020-11-21] MEDS ORDERED: ACETAMINOPHEN TAB 650MG DOSE (2X325MG) PO ONE (21:05)
[2020-11-21 21:13] LABS: HEMATOCRIT 41.4 % (36.0-47.0); HEMOGLOBIN 14.1 g/dl (12.0-15.5); MEAN CORPUSCULAR HEMOGLOBIN 30.8 pg (27.0-33.0); MEAN CORPUSCULAR HGB CONC 34.1 g/dl (32.0-36.5); MEAN CORPUSCULAR VOLUME 90.4 fl (80.0-96.0); PLATELET COUNT, AUTOMATED 300 10^3/uL (150-450); RED BLOOD COUNT 4.58 10^6/uL (4.00-5.40)
[2020-11-21 21:15] LABS: WHITE BLOOD COUNT 14.9 10^3/uL (4.0-10.0)
[2020-11-21 21:23] LABS: ALBUMIN 3.7 GM/DL (3.2-5.2); ALT/SGPT 20 U/L (12-78); BILIRUBIN,DIRECT < 0.1 MG/DL (0.0-0.2); BILIRUBIN,TOTAL 0.2 MG/DL (0.2-1.0); BLOOD UREA NITROGEN 9 MG/DL (7-18); CALCIUM LEVEL 9.3 MG/DL (8.5-10.1); CARBON DIOXIDE LEVEL 25 MEQ/L (21-32); CHLORIDE LEVEL 104 MEQ/L (98-107); CK-MB VALUE MASS < 1.0 NG/ML (<3.6); CPK CREATINE PHOSPHOKINASE 424 U/L (26-192); CREATININE FOR GFR 0.72 MG/DL (0.55-1.30); GLOMERULAR FILTRATION RATE > 60.0 (>60); GLUCOSE, FASTING 96 MG/DL (70-100); LIPASE 126 U/L (73-393); MB/CK RELATIVE INDEX 0.24 (< OR =4); POTASSIUM SERUM 3.4 MEQ/L (3.5-5.1); SODIUM LEVEL 139 MEQ/L (136-145); TOTAL PROTEIN 7.6 GM/DL (6.4-8.2); TROPONIN I < 0.02 NG/ML (< 0.10)
[2020-11-21 21:42] LABS: HCG, SERUM QUALITATIVE NEGATIVE (NEGATIVE)
[2020-11-21 22:02] LABS: ATYPICAL LYMPH 40 % (0-5); EOSINOPHILS 3 % (0-3); LYMPHOCYTES 17 % (16-44); MONOCYTES 3 % (0-5); NEUTROPHILS 36 % (28-66); PLATELET ESTIMATE NORMAL (NORMAL)
[2020-11-21] MEDS ORDERED: POTASSIUM CHLORIDE 10 MEQ SR TABLET PO ONE (22:10)
[2020-11-21] MEDS ORDERED: ISOVUE-370 76% 100ML VIAL As Ordered ONE (22:25)
--- NOTE | 2020-11-21 23:28 | REPVR ---
PROCEDURE INFORMATION: Exam: CT Abdomen And Pelvis With Contrast Exam date and time: 11/21/2020 10:42 PM Age: 35 years old Clinical indication: Abdominal pain; Localized; Left upper quadrant (luq); Additional info: Luq pain TECHNIQUE: Imaging protocol: Computed tomography of the abdomen and pelvis with contrast. Axial, coronal and sagittal reformatted images were created and reviewed. Radiation optimization: All CT scans at this facility use at least one of these dose optimization techniques: automated exposure control; mA and/or kV adjustment per patient size (includes targeted exams where dose is matched to clinical indication); or iterative reconstruction. Contrast material: ISOVUE 370; Contrast volume: 100 ml; Contrast route: INTRAVENOUS (IV); COMPARISON: US PELVIC NON-OB COMPLETE 01/25/2016 10:46 AM FINDINGS: Liver: Mild hepatomegaly. Mild, diffuse hepatic steatosis.Status post cholecystectomy. No biliary ductal dilatation. Gallbladder and bile ducts: See "Liver" finding. Pancreas: Unremarkable. Spleen: Ill-defined subcentimeter low-density splenic lesions, nonspecific in appearance. Adrenal glands: Normal. No mass. Kidneys and ureters: 6 mm fat density left renal lesion, likely an angiomyolipoma. 1.3 cm simple left renal cyst (no follow-up is indicated based on the imaging appearance). No radiodense calculi. No hydronephrosis. Stomach and bowel: No bowel wall thickening. No obstruction. No pneumatosis. Appendix: Normal. Intraperitoneal space: No free fluid. No organized fluid collection. No free air. Vasculature: Unremarkable. No aneurysm. Lymph nodes: No pathologically enlarged lymph nodes. Urinary bladder: Unremarkable as visualized. Reproductive: Unremarkable. Bones/joints: No acute osseous abnormality. Soft tissues: Unremarkable. IMPRESSION: 1. Ill-defined subcentimeter low-density splenic lesions, nonspecific in appearance but statistically hemangiomata. Given the patient's clinical symptoms, MRI may be useful for further characterization. 2. Additional findings, as above. COMMENTS: Consistent with the [employer]'s Incidental Findings Committee white paper (J Am John Radiol 2018): Any incidental renal lesion less than 1 cm or classified as too small to characterize, or any incidental cystic renal lesion characterized as simple-appearing, is likely benign. No follow-up imaging is recommended for these lesions per consensus recommendations based on imaging criteria. Electronically signed by: Pavan Alberts On 11/21/2020 23:28:31 PM
--- NOTE | 2020-11-22 13:18 | ECGEPIP ---
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
--- NOTE | 2020-11-22 17:45 | ED PDOC ---
Post-Departure Follow-Up ct abd/p faxed to dr caro forShonda Donato MD Nov 22, 2020 17:45
== END 2020-11-22 00:09 | disposition home or self-care (01) ==
LOC: M ED 20:26
DX: R10.12 Left upper quadrant pain (principal); K21.9 Gastro-esophageal reflux disease without esophagitis; K58.9 Irritable bowel syndrome, unspecified; Z79.899 Other long term (current) drug therapy; Z79.3 Long term (current) use of hormonal contraceptives; Z88.0 Allergy status to penicillin; Z88.8 Allergy status to other drugs, medicaments and biological substances; Z91.018 Allergy to other foods; Z91.040 Latex allergy status; F17.210 Nicotine dependence, cigarettes, uncomplicated
CPT/HCPCS: 36415; 74177; 80048; 80076; 82550; 82553; 83690; 84703; 85025; 93005; 93041; 99284; Q9967

== ENCOUNTER 2021-03-27 17:16 | Emergency (ER) | payer OTHER ==
[~2021-03-27] VITALS: Ht 152.4 cm; Wt 81.8 kg
[~2021-03-27 17:16] MED LIST changes: -PROHANCE 279.3MG/ML 15ML VIAL As Ordered ONE; -PROHANCE 279.3MG/ML 5ML VIAL As Ordered ONE
[2021-03-27 17:17] VITALS: BP 127/84
== END 2021-03-27 19:02 | disposition left against medical advice (07) ==
LOC: M ED 17:16
DX: Z53.29 Procedure and treatment not carried out because of patient's decision for other reasons (principal)

== ENCOUNTER → 2021-03-27 | Outpatient (CLI) | payer OTHER ==
[~2021-03-27] MED LIST changes: +APPLCAP PO; +CEPH500C PO; +ERGO500029 PO; +LORA-674; -OLAN10TA2 PO; +OLAN1TAB20 PO; +OMEP40CA4 PO; -OMEP40CA97 PO; +PROHANCE 279.3MG/ML 15ML VIAL As Ordered ONE; +PROHANCE 279.3MG/ML 5ML VIAL As Ordered ONE; +RA B2500 PO
--- NOTE | 2021-03-27 15:51 | REP ---
INDICATION: ABNORMAL FINDINGS ON DX IMAGING OF PRT DIGESTIVE T. COMPARISON: Prior CT of 11/21/2020 was reviewed. TECHNIQUE: Pre and post contrast 3T MRI of the abdomen attention spleen was performed utilizing various sequences. Gadolinium utilized: 16 cc ProHance FINDINGS: The signal in vascular pattern throughout the spleen is normal. There are no masses. There is no abnormal enhancement. There is no splenomegaly. There are no abnormal Steffanie splenic fluid collections. The liver, pancreas, adrenal glands, and right kidney are unremarkable. Incidental tiny left renal cortical cysts are identified. There is no adenopathy. The abdominal aorta is within normal limits. There is no free fluid. The cortical marrow signal seen throughout the exam is within normal limits. IMPRESSION: 1. There is no splenic abnormality. 2. Tiny simple left renal cortical cysts the largest measures a cm. <Electronically signed by Valentin Osborne > 03/27/21 0429
== END ==
LOC: M RAD 13:04
PROVIDERS: ATTEND Internal Medicine Gastroenterology
DX: R93.3 Abnormal findings on diagnostic imaging of other parts of digestive tract (principal); N28.1 Cyst of kidney, acquired
CPT/HCPCS: 74183; A9576

== ENCOUNTER → 2021-08-27 | Outpatient (CLI) | payer OTHER ==
[~2021-08-27] MED LIST changes: +DICY10CA13 PO; +JUNE1.5T PO; +META0.52 PO
== END ==
LOC: M LABSMTC 09:15
PROVIDERS: ATTEND Anesthesiology
DX: Z01.812 Encounter for preprocedural laboratory examination (principal); Z11.52 Encounter for screening for COVID-19

== ENCOUNTER 2021-08-31 09:46 | Day surgery (SDC) | payer OTHER ==
[~2021-08-31] VITALS: Ht 152.4 cm; Wt 82.1 kg
[~2021-08-31 09:46] MED LIST changes: +LR 1,000 ML IV ONE; +OMEP-173 PO; -OMEP-218 PO
[2021-08-31] MEDS ORDERED: LIDOCAINE W/EPINEPHRINE 1% 20ML VIAL As Ordered ONE (10:08)
[2021-08-31] MEDS ORDERED: METH-1164 (10:28)
[2021-08-31] MEDS ORDERED: fentaNYL 100 MCG/2 ML INJECTION As Ordered ONE (11:10)
[2021-08-31] MEDS ORDERED: dexameTHASONE 4 MG/ML 1ML VIAL (J1100 PER 1MG) As Ordered ONE (11:10)
[2021-08-31] MEDS ORDERED: MIDAZOLAM INJ 2MG/2ML VIAL (J2250 PER 1MG) As Ordered ONE (11:10)
[2021-08-31] MEDS ORDERED: ONDANSETRON 4MG/2ML VIAL As Ordered ONE (11:10)
[2021-08-31] MEDS ORDERED: LIDOCAINE 2% 100MG/5ML SDV (FOR ANES.) As Ordered ONE (11:10)
[2021-08-31] MEDS ORDERED: propofoL 200 MG/20 ML VIAL As Ordered ONE (11:10)
[2021-08-31] MEDS ORDERED: LR 1,000 ML IV SCH ×2 (12:20)
[2021-08-31] MEDS ORDERED: fentaNYL 100 MCG/2 ML INJECTION IV PRN (12:20)
[2021-08-31] MEDS ORDERED: ONDANSETRON 4MG/2ML VIAL IV PRN (12:20)
[2021-08-31] MEDS ORDERED: oxyCODONE 5MG TAB PO PRN (12:20)
[2021-08-31 13:32] VITALS: BP 129/85
== END 2021-08-31 14:18 | disposition home or self-care (01) ==
LOC: M SDC 09:46
PROVIDERS: ATTEND Dentist Oral and Maxillofacial Surgery
DX: K02.9 Dental caries, unspecified (principal); F25.9 Schizoaffective disorder, unspecified; F31.9 Bipolar disorder, unspecified; K21.9 Gastro-esophageal reflux disease without esophagitis; K58.0 Irritable bowel syndrome with diarrhea; G89.29 Other chronic pain; M54.50 Low back pain, unspecified; Z88.0 Allergy status to penicillin; Z88.8 Allergy status to other drugs, medicaments and biological substances; Z91.018 Allergy to other foods; Z91.038 Other insect allergy status; Z91.040 Latex allergy status; Z79.899 Other long term (current) drug therapy; Z79.3 Long term (current) use of hormonal contraceptives; Z87.891 Personal history of nicotine dependence; F12.20 Cannabis dependence, uncomplicated
CPT/HCPCS: 88300; D7210; D9223; J1100; J2250; J2405; J3010